=== PATIENT | female | born 1995 | race Caucasian/White ===

== ENCOUNTER → 2017-03-13 15:47 | Outpatient (CLI) | payer OTHER, SELFPAY ==
[2017-03-13 17:27] LABS: Color, Urine Yellow (Yellow); Glucose, Dipstick Normal (Normal); Ketone-Dipstick 50 mg/dl (Negative); Leukocyte Esterase-Dipstick 25 /ul (Negative); Nitrite-Dipstick Negative (Negative); Occult Blood-Urine 10 /ul (Negative); Protein-Dipstick 30 mg/dl (Negative); Specific Gravity, Urine 1.025 (1.002-1.030); Urine Clarity Cloudy (Clear); Urine Urobilinogen 4 mg/dl (Normal)
[2017-03-13 17:31] LABS: Urine Bilirubin Dipstick 1 mg/dL (Negative)
[2017-03-13 17:34] LABS: Absolute Lymphocyte Count 2.48 X10^3/ul (0.83-4.51); Absolute Neutrophil Count 7.8 X10^3/uL (2.0-7.7); Basophil# 0.02 X10^3/uL; Basophil% 0.2 % (0-1); Eosinophil# 0.09 X10^3/uL; Eosinophils% 0.8 % (0-5); Hematocrit 37.7 % (37-47); Hemoglobin 12.5 g/dl (12.0-15.0); Lymphocyte # 2.48 X10^3/ul (4.0); Lymphocyte % 22.5 % (19-41); Mean Corp Hgb Conc 33.2 g/gl (32-36); Mean Corpuscular Hgb 28.3 pg (27.0-32.0); Mean Corpuscular Volume 85.5 fL (81-99); Mean Platelet Vol. 10.3 fl (6.2-12.0); Monocyte# 0.56 X10^3/uL; Monocyte% 5.1 % (0-10); Neutrophil # 7.84 X10^3/uL (2.7-7.7); Neutrophil % 71.3 % (47-70); Platelet Count 307 K/mm3 (150-450); RBC Distribution Width CV 13.4 % (11.6-14.6); RBC Distribution Width SD 41.8 fl (35.1-43.9); Red Blood Count 4.41 M/mm3 (4.2-5.4)
[2017-03-13 17:37] LABS: POSITIVE COUNT NO; POSITIVE DIFFERENTIAL NO; POSITIVE MORPHOLOGY NO
[2017-03-13 18:00] LABS: Rubella IgG 195.9 IU/mL
[2017-03-15 16:07] LABS: HIV 1/0/2 SCREEN 4TH GEN Non Reactive (Non Reactive)
[2017-03-16 14:36] LABS: HEPATITIS B SURFACE AG Negative (Negative); Hep C Antibodies 0.1 s/co ratio (0.0-0.9)
[2017-03-20 04:38] LABS: Prenatal RPR NONREACTIVE (NONREACTIVE)
== END ==
PROVIDERS: Visit Provider Obstetrics & Gynecology
DX: Z34.81 Encounter for supervision of other normal pregnancy, first trimester (principal)
CPT/HCPCS: 36415; 81002; 84443; 85025; 86703; 86762; 86803; 87340

== ENCOUNTER → 2017-07-06 14:06 | Outpatient (CLI) | payer OTHER, SELFPAY ==
[2017-07-06 15:39] LABS: Hematocrit 36.9 % (37-47); Hemoglobin 12.4 g/dl (12.0-15.0); Mean Corp Hgb Conc 33.6 g/gl (32-36); Mean Corpuscular Hgb 29.2 pg (27.0-32.0); Mean Corpuscular Volume 86.8 fL (81-99); Mean Platelet Vol. 10.1 fl (6.2-12.0); Platelet Count 290 K/mm3 (150-450); RBC Distribution Width CV 12.9 % (11.6-14.6); Red Blood Count 4.25 M/mm3 (4.2-5.4); White Blood Count 11.5 K/mm3 (4.4-11.0)
[2017-07-06 15:41] LABS: Scan Indicated on CBC? Y/N NO
[2017-07-06 15:50] LABS: Glucose Challenge Gest 1H 50g 130 mg/dL (70-140)
== END ==
PROVIDERS: Visit Provider Obstetrics & Gynecology
DX: Z34.83 Encounter for supervision of other normal pregnancy, third trimester (principal)
CPT/HCPCS: 36415; 82950; 85027

== ENCOUNTER 2017-07-29 08:18 | Outpatient (CLI) | payer OTHER, SELFPAY ==
--- NOTE | 2017-07-29 08:18 | DT_ITS ---
This patient was seen during an EMR downtime July 27, 2017 - August 03, 2017. This patient may have a combination of paper and electronic documentation or all paper documentation. All documentation is viewable within the e-chart portion of [employer] for each patient visit.
== END 2017-07-29 09:30 | disposition home or self-care (01) ==
LOC: WP 07-30 12:21 → WPOUT 07-30 12:21
PROVIDERS: Family Provider Family Medicine; PCP Family Medicine; Visit Provider Obstetrics & Gynecology
DX: O26.853 Spotting complicating pregnancy, third trimester (principal); O41.03X0 Oligohydramnios, third trimester, not applicable or unspecified; O99.213 Obesity complicating pregnancy, third trimester; E66.01 Morbid (severe) obesity due to excess calories; Z3A.30 30 weeks gestation of pregnancy
CPT/HCPCS: 59025; 59050; 99218; G0378

== ENCOUNTER 2017-08-14 11:35 | Outpatient (CLI) | payer OTHER, SELFPAY ==
[2017-08-14 11:55] VITALS: BMI 23.6
[2017-08-14 12:59] LABS: Hematocrit 35.8 % (37-47); Hemoglobin 12.1 g/dl (12.0-15.0); Mean Corp Hgb Conc 33.8 g/gl (32-36); Mean Corpuscular Hgb 29.2 pg (27.0-32.0); Mean Corpuscular Volume 86.3 fL (81-99); Mean Platelet Vol. 9.4 fl (6.2-12.0); Platelet Count 267 K/mm3 (150-450); RBC Distribution Width CV 12.5 % (11.6-14.6); RBC Distribution Width SD 39.5 fl (35.1-43.9); Red Blood Count 4.15 M/mm3 (4.2-5.4); White Blood Count 10.6 K/mm3 (4.4-11.0)
[2017-08-14 13:01] LABS: Scan Indicated on CBC? Y/N NO
[2017-08-14 13:18] LABS: ALB/GLOB Ratio 0.5 RATIO (0.9-2.4); AST(SGOT) 44 U/L (15-37); Alanine Aminotransfer ALT/SGPT 81 U/L (13-56); Albumin, Serum 2.3 g/dL (3.2-5.0); Alkaline Phosphatase 125 U/L (45-117); Anion Gap 5 (5-15); BUN 8 mg/dL (7-18); BUN/Creat Ratio 14.5 RATIO (10-20); Chloride 109 mmol/L (98-107); Creatinine, Serum 0.55 mg/dL (0.55-1.02); EST Glomerular Filtration Rate 145 mL/min (>60); Est Glom Filt Rate - Afr Amer 175 mL/min (>60); Estimated Creatinine Clearance 143.15 ml/min; Globulin 4.5 g/dL (2.2-4.2); Glucose 90 mg/dL (74-106); Potassium 4.1 mmol/L (3.5-5.1); Protein, Total 6.8 g/dL (6.4-8.2); Sodium Level 138 mmol/L (136-145); Uric Acid 3.4 mg/dL (2.6-6.0)
[2017-08-14 14:20] LABS: Protein, Urine (Random) 11.6 mg/dL (<11.9); Protein:Creat Ratio 263 mg/g CRE (0-200)
[2017-08-15 14:33] LABS: 24HR. Urine Creatinine 1.81 g/24 HR (0.70-1.90)
--- NOTE | 2017-08-16 00:13 | OB.TRI.NOTE ---
- Problem List (1) 33 weeks gestation of Status: Acute (2) Elevated blood pressure affecting in third trimester, antepartum Status: Acute History of Present Illness Date of Service: 08/14/17 Was patient seen by the physician?: No Reason For Visit: NST Final MARCO: 09/30/17 Final MARCO Source: US <20 weeks Gestational age: 33 Weeks and 2 Days History of Present Illness: 21yo G1 @ 33 2/7wga for scheduled NST for oligohydramnios. Allergies naproxen [From Aleve] Allergy (Verified 08/14/17 11:59) Hives Physical Exam Vitals: BPs 126-139/77-91, P 76-93 NST - FHR Rate Baby A Baseline: 145 Variability:: Moderate Accelerations:: 15 x 15 Decelerations:: None NST Reactive:: Yes FHR Category:: Category I Uterine Activity:: 0/10 Impression/Plan 21yo G1 @ 33 2/7wga with oligohydramnios, elevated BPs without diagnosis of hypertension. -Pt asx for preeclampsia per RN -Preeclamptic labs sent and significant for slightly elevated AST/ALT -Will d/c home with 24h urine protein collection, pt to follow in office next week for BP check and follow up. Laboratory Tests 08/14/17 08/14/17 08/14/17 12:50 12:50 13:40 WBC 10.6 RBC 4.15 L Hgb 12.1 Hct 35.8 L MCV 86.3 MCH 29.2 MCHC 33.8 RDW 12.5 RDW Differential 39.5 Plt Count 267 MPV 9.4 Sodium 138 Potassium 4.1 Chloride 109 H Carbon Dioxide 24.0 Anion Gap 5 BUN 8 Creatinine 0.55 Estim Creat Clear Calc 143.15 Est GFR (MDRD) Af Amer 175 Est GFR (MDRD) Non-Af 145 BUN/Creatinine Ratio 14.5 Glucose 90 Uric Acid 3.4 Calcium 9.0 Total Bilirubin 0.20 AST 44 H ALT 81 H Alkaline Phosphatase 125 H Total Protein 6.8 Albumin 2.3 L Globulin 4.5 H Albumin/Globulin Ratio 0.5 L U Random Total Protein 11.6 Ur Collection Duration Urine Total Volume Urine Creatinine 44.10 Ur Creatinine 24 Hour Protein/Creatinin Ratio 263 H 08/14/17 14:15 WBC RBC Hgb Hct MCV MCH MCHC RDW RDW Differential Plt Count MPV Sodium Potassium Chloride Carbon Dioxide Anion Gap BUN Creatinine Estim Creat Clear Calc Est GFR (MDRD) Af Amer Est GFR (MDRD) Non-Af BUN/Creatinine Ratio Glucose Uric Acid Calcium Total Bilirubin AST ALT Alkaline Phosphatase Total Protein Albumin Globulin Albumin/Globulin Ratio U Random Total Protein Ur Collection Duration 24.0 Urine Total Volume 2.90 Urine Creatinine 62.80 Ur Creatinine 24 Hour 1.81 Protein/Creatinin Ratio
== END 2017-08-14 13:50 | disposition home or self-care (01) ==
LOC: WPOUT 11:40 → WP 11:40
PROVIDERS: Family Provider Family Medicine; PCP Family Medicine; Visit Provider Obstetrics & Gynecology
DX: O41.03X0 Oligohydramnios, third trimester, not applicable or unspecified (principal); Z3A.33 33 weeks gestation of pregnancy
CPT/HCPCS: 59025; 59050; 80053; 82570; 84156; 84550; 85027; 99218; G0378

== ENCOUNTER → 2017-08-15 14:09 | Outpatient (CLI) | payer OTHER, SELFPAY ==
[2017-08-17 12:13] LABS: 24 Hour Urine Protein 422.6 mg/24HR (<150 MG/24HR); 24HR. UA Prot. Total Volume 2875 mL; Urine Protein (24 Hour) 14.7 mg/dL (<11.9)
== END ==
PROVIDERS: Family Provider Family Medicine; PCP Family Medicine; Visit Provider Obstetrics & Gynecology
DX: O14.93 Unspecified pre-eclampsia, third trimester (principal); Z3A.33 33 weeks gestation of pregnancy; O41.03X0 Oligohydramnios, third trimester, not applicable or unspecified
CPT/HCPCS: 84156

== ENCOUNTER → 2017-08-17 11:31 | Outpatient (CLI) | payer OTHER, SELFPAY ==
[2017-08-17 13:55] LABS: AST(SGOT) 32 U/L (15-37); Alanine Aminotransfer ALT/SGPT 74 U/L (13-56); Albumin, Serum 2.6 g/dL (3.2-5.0); Alkaline Phosphatase 141 U/L (45-117); Bilirubin, Direct 0.07 mg/dL (0.00-0.30); Globulin 4.9 g/dL (2.2-4.2); Protein, Total 7.5 g/dL (6.4-8.2)
== END ==
PROVIDERS: Visit Provider Obstetrics & Gynecology
DX: Z34.83 Encounter for supervision of other normal pregnancy, third trimester (principal)
CPT/HCPCS: 36415; 80076

== ENCOUNTER 2017-09-02 11:20 | Outpatient (CLI) | payer OTHER, SELFPAY ==
[2017-09-02 11:48] VITALS: BMI 53.2
--- NOTE | 2017-09-05 06:34 | OB.TRI.NOTE ---
History of Present Illness Date of Service: 09/02/17 Was patient seen by the physician?: No Reason For Visit: NST Date of Service: 09/02/17 Final MARCO: 09/30/17 Final MARCO Source: US <20 weeks Gestational age: 36 Weeks and 0 Days History of Present Illness: 21 yo at 36 wk EGA sent in from ofc for NST due to PIH, mild preeclampsia. BMI more conducive to bed for NST. No PIH sx. has been on bedrest at home with Dx of mild preeclampsia by prior BPs and by 24 hr proteinuria Allergies naproxen [From Aleve] Allergy (Verified 09/02/17 11:50) Hives Physical Exam Vitals: BP 138/73 NST - FHR Rate Baby B Baseline: 130-140s with accels to 160s Variability:: Moderate Accelerations:: 15 x 15 Decelerations:: None, Early NST Reactive:: Yes, Appropriate for gestational age FHR Category:: Category I Uterine Activity:: No UCs Impression/Plan 36 wk mild preeclampsia BPs stable reactive NST Continue NST q wk. Ofc f/u as planned Induction at 37-38 wk EGA planned 2/2 PIH, mild preeclampsia
== END 2017-09-02 12:35 | disposition home or self-care (01) ==
LOC: WPOUT 11:22 → WP 11:23
PROVIDERS: Family Provider Family Medicine; PCP Family Medicine; Visit Provider Obstetrics & Gynecology
DX: O14.03 Mild to moderate pre-eclampsia, third trimester (principal); Z3A.36 36 weeks gestation of pregnancy
CPT/HCPCS: 59025

== ENCOUNTER → 2017-09-02 13:11 | Outpatient (CLI) | payer OTHER, SELFPAY ==
[2017-09-02 16:44] LABS: Group B Strep DNA By PCR Negative (Negative); Internal Control PASS; Probe Check PASS; Specimen Processing Control PASS
== END ==
PROVIDERS: Visit Provider Obstetrics & Gynecology
DX: Z36.85 Encounter for antenatal screening for Streptococcus B (principal)
CPT/HCPCS: 87081; 87653

== ENCOUNTER 2017-09-09 11:50 | Inpatient (IN) | payer OTHER, SELFPAY ==
[2017-09-09] MEDS: 0.9% Saline Lock 10 ML Syringe IV (12:44)
[2017-09-09] MEDS: miSOPROStol 25 MCG TABLET PO ×3 (12:44→21:27)
[2017-09-09 12:53] VITALS: BMI 53.1
[2017-09-09 12:57] LABS: Hematocrit 36.8 % (37-47); Hemoglobin 12.6 g/dl (12.0-15.0); Mean Corp Hgb Conc 34.2 g/gl (32-36); Mean Corpuscular Hgb 29.2 pg (27.0-32.0); Mean Corpuscular Volume 85.4 fL (81-99); Mean Platelet Vol. 9.8 fl (6.2-12.0); Platelet Count 289 K/mm3 (150-450); RBC Distribution Width CV 12.5 % (11.6-14.6); RBC Distribution Width SD 38.9 fl (35.1-43.9); Red Blood Count 4.31 M/mm3 (4.2-5.4); White Blood Count 10.7 K/mm3 (4.4-11.0)
[2017-09-09 13:00] LABS: Scan Indicated on CBC? Y/N NO
[2017-09-09 13:05] LABS: AST(SGOT) 42 U/L (15-37); Alanine Aminotransfer ALT/SGPT 74 U/L (13-56); Creatinine, Serum 0.64 mg/dL (0.55-1.02); EST Glomerular Filtration Rate 122 mL/min (>60); Est Glom Filt Rate - Afr Amer 148 mL/min (>60); Estimated Creatinine Clearance 123.02 ml/min; Uric Acid 4.4 mg/dL (2.6-6.0)
[2017-09-09 13:08] LABS: International Normalized Ratio 0.9; Prothrombin Time (Protime)PT. 12.5 SECONDS (11.7-14.9)
[2017-09-09 13:09] LABS: Partial Thromboplast Time 27.8 Seconds (24.1-36.2)
[2017-09-09 15:13] LABS: Protein, Urine (Random) 38.4 mg/dL (<11.9); Protein:Creat Ratio 239 mg/g CRE (0-200)
[2017-09-10] MEDS: 0.9% Saline Lock 10 ML Syringe IV ×2 (01:16→07:43)
[2017-09-10] MEDS: miSOPROStol 25 MCG TABLET PO ×2 (01:16→05:16)
--- NOTE | 2017-09-10 07:22 | PN.OBGYN_ITS ---
Subjective: Comfortable. No contractions overnight. Good movement. Objective: Afeb VSS BP normal range - Physical Exam General: Alert, Oriented x3, Cooperative, No apparent distress Lungs: Clear to auscultation, Normal air movement Cardiovascular: Regular rate, Regular Rhythm Abdomen: Soft, Non Tender, Non-Distended, Gravid Extremities: No edema Skin: No rashes Neurological: Neuro grossly intact Psych/Mental Status: Normal Affect Comment: CE 2/50/-3 Weight: 319 lb 10.724 oz Body Mass Index (BMI) 53.1 Intake and Output for Last 24 Hours 09/08/17 09/09/17 09/10/17 23:59 23:59 23:59 Intake Total 400 / 400 Output Total 250 / 250 Balance 150 / 150 Laboratory Tests Past 24 Hrs 09/09/17 09/09/17 09/09/17 12:35 12:35 12:35 WBC 10.7 RBC 4.31 Hgb 12.6 Hct 36.8 L MCV 85.4 MCH 29.2 MCHC 34.2 RDW 12.5 RDW Differential 38.9 Plt Count 289 MPV 9.8 PT 12.5 INR 0.9 APTT 27.8 Creatinine Estim Creat Clear Calc Est GFR (MDRD) Af Amer Est GFR (MDRD) Non-Af Uric Acid AST ALT U Random Total Protein Urine Creatinine Protein/Creatinin Ratio Blood Type A POSITIVE Antibody Screen NEGATIVE 09/09/17 09/09/17 12:35 14:25 WBC RBC Hgb Hct MCV MCH MCHC RDW RDW Differential Plt Count MPV PT INR APTT Creatinine 0.64 Estim Creat Clear Calc 123.02 Est GFR (MDRD) Af Amer 148 Est GFR (MDRD) Non-Af 122 Uric Acid 4.4 AST 42 H ALT 74 H U Random Total Protein 38.4 H Urine Creatinine 161.00 Protein/Creatinin Ratio 239 H Blood Type Antibody Screen Medical Necessity - Tobacco Use Smoking Status: Never smoker Assessment/Plan All Active Problems 33 weeks gestation of (Acute) Elevated blood pressure affecting in third trimester, antepartum ( Acute) Admitted at 37 weeks for induction of labor with preeclampsia with elevated BPs and proteinuria. Labs sent at admission normal except elevated AST/ALT. No physical symptoms related to preeclampsia. FHR tracing appropriate. AROM was performed with clear fluid noted. DEE placed. Will start pitocin induction at 0900. S/P 5 doses of vaginal cytotec.
[2017-09-10] MEDS: Lactated Ringers 1,000 ML 50 ML IV ×4 (07:43→23:30)
[2017-09-10] MEDS: Oxytocin 30 units/NS 500 ml 30 UNITS/500 ML IV.SOLN IV (09:21)
[2017-09-10] MEDS: Nalbuphine 10 MG/ML Ampul IV (12:25)
[2017-09-10] MEDS: fentaNYL-bupivacaine (epidural) 100 ML BAG EPIDURAL ×3 (14:28→23:29)
[2017-09-10] MEDS: Ondansetron 4 MG/2 ML Vial IV (17:05)
--- NOTE | 2017-09-10 17:56 | PCM.PN.BLA ---
Progress Note Reports nausea improved after Zofran. Denies headache, vision changes. She otherwise is comfortable. AVSS GEN - NAD, AAO x 3 FHR - 150, minimal variability, no accelerations or decelerations - previously with late decelerations TOCO 4/10 min with coupleting of contractions SVE 5/80/-2 per RN at 1639h A/P: 21yo G1 @ 37 1/7wga with preeclampsia without severe features, Cat II FHR -IV fluid bolus given. Variability decreasing - will place O2 supplementation; maternal repositioning. Discussed with patient concerns and will continue observation without pitocin at this time. -No si/sx worsening preeclampsia -Monitor closely
--- NOTE | 2017-09-10 21:40 | PCM.PN.BLA ---
Progress Note LABOR PROGRESS NOTE Reports discomfort in lower abdomen. Denies pressure urge to push or have a bowel movement. AVSS GEN - NAD, AAO x 3 FHR 150, moderate variability, + accelerations, no decelerations TOCO 4-5/10 min, MVU >200 SVE deferred A/P: 21yo G1 @ 37 1/7wga IOL with preeclampsia without severe features, Cat I FHR -Continue pitocin as tolerated by mother and fetus -No si/sx worsening preeclampsia -Will defer exam for additional 1-2 hours or until feels urge to push.
--- NOTE | 2017-09-11 01:15 | PCM.PN.BLA ---
Progress Note LABOR PROGRESS NOTE c/o rectal pressure and discomfort. AVSS GEN - NAD, AAO x 3 FHR 160, moderate variability, + variable decelerations TOCO 3-4/10 min SVE FD/0 station A/P: 21yo G1 @ 37 2/7wga, preeclampsia without severe features -Amnioinfusion given, pitocin discontinued without significant improvement of variable decelerations. Pushing initiated. Given recurrent variable decelerations plan move to OR for double set up to continue pushing. Plan for vacuum assisted vaginal delivery when +2 station. R/B/I vacuum reviewed. Discussed section as alternative and patient understands may need to proceed with section if status declines. R/B/I section reviewed. Patient and spouse given opportunity to ask questions and questions answered to their satisfaction. Will continue pushing in OR. -Monitor closely
[2017-09-11] MEDS: Oxytocin 30 units/NS 500 ml 30 UNITS/500 ML IV.SOLN 334 UNITS IV (01:53)
--- NOTE | 2017-09-11 02:14 | PCM.OB.VAG ---
- Problem List (1) 37 weeks gestation of Status: Acute (2) Pre-eclampsia in third trimester Status: Acute (3) Vacuum extraction, delivered, current hospitalization Status: Acute Vaginal Delivery Maternal Presentation: Medically Indicated Induction Method of Induction: Pitocin, Amniotomy, Cytotec Medical Reason for Induction: - - Preeclampsia without severe features Amniotic Membrane Rupture Type: Artificial Rupture of Membrane time: 09/10/17 0710h Amniotic Fluid Description: Clear Final MARCO: 09/30/17 Final MARCO Source: US <20 weeks Gestational age: 37 Weeks and 2 Days doctor who attended delivery (if requested by OB): Nini Collado Date of Procedure: 09/11/17 Pre-Operative Diagnosis: 37 2/7wga, preeclampsia without severe features, Cat II FHR Post-Operative Diagnosis: 37 2/7wga, preeclampsia without severe features, Cat II FHR Surgery/ Procedure Performed: Spontaneous Vaginal Delivery Anesthesiologist: Corin Martin Type of Anesthesia: Epidural Description of Procedure: Patient was FD and +3 station and ROP. FHR remained Cat II with recurrent variable decelerations. She was given Oxygen supplementation and I advised proceeding with vacuum delivery. Reviewed with patient and maternal risks, benefits and indications of vacuum assistance. She agreed to proceed. The Kiwi cap was placed at the flexion point and suction applied to 500mmHg. The patient pushed with good maternal effort. Two pulls were performed, the second was accompanied by some loss of suction without any popoff. Thus the suction was released and the vacuum replaced. The vacuum was replaced at the flexion point and the patient continued pushing with good descent. The head delivered with restitution and the vacuum was removed. A nuchal cord x 1 was reduced. The shoulders delivered with ease. The was placed on the maternal abdomen, the cord was immediately doubly clamped and cut and the infant was passes to the awaiting Pediatric Hospitalist and nursery personnel. The placenta delivered spontaneously and appeared intact on inspection. An intrauterine exam was performed and IV pitocin started. A first degree vaginal laceration was repaired with 3-0 Vicryl Rapide. A right labial laceration was repaired with 3-0 Vicryl Rapide. Sponge counts were correct x 2. 2525g Apgars 4, 6, 7, 7 Presentation: Vertex Placental Delivery Description: Spontaneous Placenta Disposition: Sent to Pathology Cord Vessel Description: 3 Vessels Nuchal Cord Compression: With compression Cord Gases drawn per routine: ABG, VBG Cord Entanglement: Around neck x 1, tight Drain: Davis to straight drain Estimated Blood Loss: 400 ml A gender: Male (1 minute): 4 (5 minute): 6 - Infant admitted to [facility] Episiotomy Description: None Laceration: Midline, Vaginal Extension/lac, 1st degree Medications given after delivery: IV Pitocin Complications: None
[2017-09-11] MEDS: Oxytocin 30 units/NS 500 ml 30 UNITS/500 ML IV.SOLN 167 UNITS IV (02:30)
--- NOTE | 2017-09-11 02:35 | OP.PCM_ITS ---
- Problem List (1) 37 weeks gestation of Status: Acute (2) Pre-eclampsia in third trimester Status: Acute (3) Vacuum extraction, delivered, current hospitalization Status: Acute Vaginal Delivery Maternal Presentation: Medically Indicated Induction Method of Induction: Pitocin, Amniotomy, Cytotec Medical Reason for Induction: - - Preeclampsia without severe features Amniotic Membrane Rupture Type: Artificial Rupture of Membrane time: 09/10/17 0710h Amniotic Fluid Description: Clear Final MARCO: 09/30/17 Final MARCO Source: US <20 weeks Gestational age: 37 Weeks and 2 Days doctor who attended delivery (if requested by OB): Nini Collado Date of Procedure: 09/11/17 Pre-Operative Diagnosis: 37 2/7wga, preeclampsia without severe features, Cat II FHR Post-Operative Diagnosis: 37 2/7wga, preeclampsia without severe features, Cat II FHR Surgery/ Procedure Performed: Spontaneous Vaginal Delivery Anesthesiologist: Corin Martin Type of Anesthesia: Epidural Description of Procedure: Patient was FD and +3 station and ROP. FHR remained Cat II with recurrent variable decelerations. She was given Oxygen supplementation and I advised proceeding with vacuum delivery. Reviewed with patient and maternal risks , benefits and indications of vacuum assistance. She agreed to proceed. The Kiwi cap was placed at the flexion point and suction applied to 500mmHg. The patient pushed with good maternal effort. Two pulls were performed, the second was accompanied by some loss of suction without any popoff. Thus the suction was released and the vacuum replaced. The vacuum was replaced at the flexion point and the patient continued pushing with good descent. The head delivered with restitution and the vacuum was removed. A nuchal cord x 1 was reduced. The shoulders delivered with ease. The was placed on the maternal abdomen, the cord was immediately doubly clamped and cut and the infant was passes to the awaiting Pediatric Hospitalist and nursery personnel. The placenta delivered spontaneously and appeared intact on inspection. An intrauterine exam was performed and IV pitocin started. A first degree vaginal laceration was repaired with 3-0 Vicryl Rapide. A right labial laceration was repaired with 3-0 Vicryl Rapide. Sponge counts were correct x 2. Infant 2525g Apgars 4, 6, 7, 7 Presentation: Vertex Placental Delivery Description: Spontaneous Placenta Disposition: Sent to Pathology Cord Vessel Description: 3 Vessels Nuchal Cord Compression: With compression Cord Gases drawn per routine: ABG, VBG Cord Entanglement: Around neck x 1, tight Drain: Davis to straight drain Estimated Blood Loss: 400 ml Infant A gender: Male (1 minute): 4 (5 minute): 6 - Infant admitted to [facility] Episiotomy Description: None Laceration: Midline, Vaginal Extension/lac, 1st degree Medications given after delivery: IV Pitocin Complications: None
--- NOTE | 2017-09-11 03:31 | DCINST_ITS ---
Discharge Diet: No Restrictions Discharge Activity: Return to Normal Activity, May not drive while taking narcotic pain medications., May Shower May resume sexual activity in: 6 weeks Call your doctor if you observe: Fever of 101 or Higher, Inability to urinate, Inability to have a bowel movement, Using more than one pad per hour, Shortness of breath, Chest pain, Calf discomfort, Uncontrolled pain, - - Severe headache not relieved by Tylenol, severe abdominal pain , vision changes Additional Instructions: If you experience any of the following, contact your healthcare provider. * Bleeding that soaks a pad every hour for 2 hours * Fever 100.4 or higher * Unrelieved incision or abdominal pain * Swelling, redness, discharge or bleeding from your incision or episiotomy site * Your incision begins to separate * Problems urinating (including inability to urinate or burning while urinating) . * Visual changes * Severe headache * Flu-like symptoms * Pain or redness in one of both of your breasts * Pain, warmth, tenderness or swelling in your legs, especially the calf area * Frequent nausea and vomiting * Symptoms of depression or anxiety If you experience any of the following, call 911 or go to the nearest Emergency Room. * Chest pain * Problems breathing * Seizure activity * Partial or complete paralysis of a body part, slurred speech, weakness or drooping of the face, or a sudden inability to walk or hold your balance Allergies/Adverse Reactions: Allergies naproxen [From Aleve] Allergy (Verified 09/09/17 12:50) Hives Medications to take at Discharge Loratadine [Claritin] 10 mg PO PRN PRN 08/14/17 Vits [Prenatabs FA ] 1 tablet PO DAILY 08/14/17 Acetaminophen [Tylenol] 325 - 650 mg PO PRN PRN 09/09/17 Calcium Carbonate [Tums] 200 mg PO PRN PRN 09/09/17 Docusate Sodium [Colace] 100 mg PO BID PRN PRN #60 cap 09/11/17 Ibuprofen 600 mg PO TID PRN #30 tab 09/11/17 The following prescriptions were given: Docusate Sodium [Colace] 100 mg PO BID PRN PRN #60 cap PRN Reason: Constipation Ibuprofen 600 mg PO TID PRN #30 tab PRN Reason: Pain Orders to be completed after discharge: Electric breast pump Location: None Selected Please Follow Up With: Jenn Cardenas MD - Blood pressure check When: 7-10 days Primary Care Physician: Nagi Tamez DO [Primary Care Provider] - Test Results: Test results from this visit will be discussed in further detail at your follow- up appointment, if applicable.
[2017-09-11 06:00] VITALS: BP 128/82; PULSE 96; RESP 18; TEMP 37.2
[2017-09-11 10:30] VITALS: BP 139/78; PULSE 90; RESP 20; TEMP 36.4
[2017-09-11] MEDS: Ibuprofen 600 MG Tablet PO ×2 (10:30→16:31)
[2017-09-11] MEDS: Prenatal Vits Tablet 1 TABLET PO (10:30)
[2017-09-11 12:45] VITALS: BP 129/66; PULSE 93; TEMP 36.4; O2SAT 97
--- NOTE | 2017-09-11 13:15 | NURSING ---
1300 While rounding, a double pump was given to Mom and she has started pumping to help with accelerating her milk supply. We discussed the use of the platnium pump and prior breast massage and breast expression as able. Encouraged Mom to call if any further questions or concerns with pumpings. Yue CHERY
[2017-09-11 16:40] VITALS: BP 136/68; PULSE 104; TEMP 36.6; O2SAT 96
[2017-09-11 20:55] VITALS: BP 130/63; PULSE 103; RESP 20; TEMP 36.9; O2SAT 96
--- NOTE | 2017-09-11 21:16 | NURSING ---
2054-states she is having some burning/stinging when she voids to stitches area-enc to spray perineum with urban bottle when she voids.
[2017-09-12] MEDS: Ibuprofen 600 MG Tablet PO ×4 (00:41→22:36)
[2017-09-12 00:43] VITALS: BP 113/75; PULSE 103; RESP 18; TEMP 37.2; O2SAT 97
[2017-09-12 05:55] VITALS: BP 107/80; PULSE 84; RESP 20; TEMP 36.3
[2017-09-12 06:10] LABS: Hematocrit 30.5 % (37-47); Hemoglobin 10.4 g/dl (12.0-15.0); Mean Corp Hgb Conc 34.1 g/gl (32-36); Mean Corpuscular Hgb 30.1 pg (27.0-32.0); Mean Corpuscular Volume 88.2 fL (81-99); Mean Platelet Vol. 9.9 fl (6.2-12.0); Platelet Count 245 K/mm3 (150-450); RBC Distribution Width CV 12.9 % (11.6-14.6); RBC Distribution Width SD 39.8 fl (35.1-43.9); Red Blood Count 3.46 M/mm3 (4.2-5.4); White Blood Count 11.2 K/mm3 (4.4-11.0)
[2017-09-12 06:14] LABS: Scan Indicated on CBC? Y/N NO
[2017-09-12 07:25] VITALS: BP 150/88; PULSE 87; RESP 16; TEMP 36.4
--- NOTE | 2017-09-12 09:41 | PN.OBGYN_ITS ---
Patient Problems: Active and Suspected Problems 37 weeks gestation of (Acute) Pre-eclampsia in third trimester (Acute) Vacuum extraction, delivered, current hospitalization (Acute) Subjective: day #1 Patient without complaints. Pumping and supplementing. Baby will likely need to stay past tomorrow as an IV is still in place. Minimal vaginal bleeding. - Physical Exam Vital Signs Temp Pulse Resp BP Pulse Ox 97.6 F L 87 16 150/88 H 97 09/12/17 07:25 09/12/17 07:25 09/12/17 07:25 09/12/17 07:25 09/12/17 00:43 Oxygen Delivery Method Room Air Weight: 319 lb 10.724 oz Body Mass Index (BMI) 53.1 Intake and Output for Last 24 Hours 09/10/17 09/11/17 09/12/17 23:59 23:59 23:59 Intake Total 1983 / 1983 500 / 500 Output Total 400 / 400 1600 / 1600 Balance 1584 / 1584 -1100 / -1100 Laboratory Tests Past 24 Hrs 09/12/17 05:55 WBC 11.2 H RBC 3.46 L Hgb 10.4 L Hct 30.5 L MCV 88.2 MCH 30.1 MCHC 34.1 RDW 12.9 RDW Differential 39.8 Plt Count 245 MPV 9.9 Medical Necessity - Tobacco Use Smoking Status: Never smoker Assessment/Plan All Active Problems 33 weeks gestation of (Acute) Elevated blood pressure affecting in third trimester, antepartum ( Acute) 37 weeks gestation of (Acute) Pre-eclampsia in third trimester (Acute) Vacuum extraction, delivered, current hospitalization (Acute) Doing well day #1. Continuing present care.
[2017-09-12 10:00] VITALS: BP 129/73; PULSE 94; RESP 18; TEMP 36.1
[2017-09-12 15:00] VITALS: BP 134/67; PULSE 86; RESP 18; TEMP 36.4
[2017-09-12] MEDS: Prenatal Vits Tablet 1 TABLET PO (15:04)
[2017-09-12 19:40] VITALS: BP 129/68; PULSE 94; RESP 16; TEMP 37.7
[2017-09-13 02:45] VITALS: BP 105/58; RESP 16; TEMP 37.1
[2017-09-13 07:56] VITALS: BP 130/80; PULSE 92; RESP 18; TEMP 35.9; O2SAT 98
--- NOTE | 2017-09-13 07:57 | PN.OBGYN_ITS ---
Patient Problems: Active and Suspected Problems 37 weeks gestation of (Acute) Pre-eclampsia in third trimester (Acute) Vacuum extraction, delivered, current hospitalization (Acute) Subjective: Patient without complaints. Pumping going well. Baby needs to a for 2 more days. - Physical Exam Vital Signs Temp Pulse Resp BP Pulse Ox 98.8 F 94 16 105/58 L 97 09/13/17 02:45 09/12/17 19:40 09/13/17 02:45 09/13/17 02:45 09/12/17 00:43 Oxygen Delivery Method Room Air Weight: 319 lb 10.724 oz Body Mass Index (BMI) 53.1 Intake and Output for Last 24 Hours 09/11/17 09/12/17 09/13/17 23:59 23:59 23:59 Intake Total 500 / 500 Output Total 1600 / 1600 Balance -1100 / -1100 Medical Necessity - Tobacco Use Smoking Status: Never smoker Assessment/Plan All Active Problems 33 weeks gestation of (Acute) Elevated blood pressure affecting in third trimester, antepartum ( Acute) 37 weeks gestation of (Acute) Pre-eclampsia in third trimester (Acute) Vacuum extraction, delivered, current hospitalization (Acute) Doing well. Will release to hotel status.
[2017-09-13] MEDS: Ibuprofen 600 MG Tablet PO (09:44)
[2017-09-13] MEDS: Prenatal Vits Tablet 1 TABLET PO (09:45)
[2017-09-13 15:35] VITALS: BP 137/88; PULSE 100; RESP 18; TEMP 36.8; O2SAT 97
--- NOTE | 2017-09-13 15:40 | NURSING ---
Patient to be transferred to hotel status.
== END 2017-09-13 16:00 | disposition home or self-care (01) | DRG 775 ==
PROVIDERS: Obstetrics & Gynecology; Admitting Provider Obstetrics & Gynecology; Family Provider Family Medicine; PCP Family Medicine; Visit Provider Obstetrics & Gynecology
DX: O76 Abnormality in fetal heart rate and rhythm complicating labor and delivery (principal); Z68.43 Body mass index [BMI] 50.0-59.9, adult; Z37.0 Single live birth; O14.94 Unspecified pre-eclampsia, complicating childbirth; O69.1XX0 Labor and delivery complicated by cord around neck, with compression, not applicable or unspecified; Z3A.37 37 weeks gestation of pregnancy; O70.0 First degree perineal laceration during delivery; O99.214 Obesity complicating childbirth; E66.01 Morbid (severe) obesity due to excess calories
CPT/HCPCS: 59025; 59050; 82565; 82570; 84156; 84450; 84460; 84550; 85027; 85610; 85730; 86850; 86900; 99218; J7030; J7120; A4216; G0378; J2405

== ENCOUNTER → 2017-12-22 10:46 | Outpatient (CLI) | payer OTHER, SELFPAY ==
[2017-12-22 11:35] LABS: Microalbumin,Random Urine 38.2 mg/L (NO RANGE EST.); Microalbumin:Creatinine Ratio 23.6 mg/g CRE (<30 mg/g CRE)
[2017-12-22 14:09] LABS: ALB/GLOB Ratio 0.8 RATIO (0.9-2.4); AST(SGOT) 76 U/L (15-37); Alanine Aminotransfer ALT/SGPT 135 U/L (13-56); Albumin, Serum 3.5 g/dL (3.2-5.0); Alkaline Phosphatase 151 U/L (45-117); Anion Gap 7 (5-15); BUN 13 mg/dL (7-18); BUN/Creat Ratio 16.1 RATIO (10-20); Calcium,Total 8.9 mg/dL (8.5-10.1); Chloride 108 mmol/L (98-107); Creatinine, Serum 0.81 mg/dL (0.55-1.02); EST Glomerular Filtration Rate 93 mL/min (>60); Est Glom Filt Rate - Afr Amer 112 mL/min (>60); Globulin 4.6 g/dL (2.2-4.2); Glucose 88 mg/dL (74-106); Protein, Total 8.1 g/dL (6.4-8.2); Sodium Level 139 mmol/L (136-145)
== END ==
PROVIDERS: Visit Provider Obstetrics & Gynecology
DX: I10 Essential (primary) hypertension (principal)
CPT/HCPCS: 36415; 80053; 82043; 82570

== ENCOUNTER → 2017-12-30 09:54 | Outpatient (CLI) | payer OTHER, SELFPAY ==
--- NOTE | 2017-12-30 09:58 | US_ITS ---
STUDY: ABDOMINAL ULTRASOUND - RIGHT UPPER QUADRANT REASON FOR VISIT: Female, 22 years old. Elevated liver enzymes TECHNIQUE: Ultrasound evaluation of the right upper quadrant was performed with real-time and static mukherjee-scale imaging. TECHNICAL QUALITY: Adequate. COMPARISON: None. FINDINGS: Liver: The liver measures 18 cm. There is normal echogenicity of the liver. The bile ducts are within normal limits. There is hepatic color flow. The direction of portal flow is hepatopetal. There is no demonstrated mass lesion. Gallbladder: Normal distended gallbladder. The gallbladder wall measures 2.3 mm. There is a negative sonographic Lacey's sign. There is no pericholecystic fluid. There are no gallstones. Common Bile Duct (C.B.D.): The common bile duct measures 5.3 mm. Pancreas: Normal size of the head, body and tail of the pancreas. There is normal echogenicity of the pancreas. There is no demonstrated pancreatic mass or cyst. Right Kidney: Normal size of the right kidney. The right kidney measures 12.6 x 6.9 x 6.5 cm. Normal renal cortex. The right cortex measures 1.8 cm. There is no demonstrated renal mass or cyst. There is no right hydronephrosis. US/Liver IMPRESSION: Hepatomegaly. Electronically Signed: Daniel Rivera DO at 23:53 EST Tel [phone], Service support ,
[2017-12-30 12:24] LABS: Cholesterol 209 mg/dL (200); High Density Lipoprotein 41 mg/dL; Triglycerides 103 mg/dL; Very Low Density Lipoprotein 21 mg/dL (5-40)
== END ==
PROVIDERS: Family Provider Internal Medicine; PCP Internal Medicine; Referring Provider Obstetrics & Gynecology; Visit Provider Obstetrics & Gynecology
DX: I10 Essential (primary) hypertension (principal); R94.5 Abnormal results of liver function studies
CPT/HCPCS: 36415; 76705; 80061

== ENCOUNTER → 2018-01-12 11:09 | Outpatient (CLI) | payer OTHER, SELFPAY ==
[2018-01-12 13:10] LABS: AST(SGOT) 37 U/L (15-37); Alanine Aminotransfer ALT/SGPT 78 U/L (13-56); Albumin, Serum 3.4 g/dL (3.2-5.0); Alkaline Phosphatase 120 U/L (45-117); Anion Gap 11 (5-15); BUN 13 mg/dL (7-18); BUN/Creat Ratio 17.2 RATIO (10-20); Calcium,Total 8.9 mg/dL (8.5-10.1); Chloride 106 mmol/L (98-107); Creatinine, Serum 0.76 mg/dL (0.55-1.02); EST Glomerular Filtration Rate 100 mL/min (>60); Est Glom Filt Rate - Afr Amer 121 mL/min (>60); Globulin 4.2 g/dL (2.2-4.2); Glucose 76 mg/dL (74-106); Potassium 3.8 mmol/L (3.5-5.1); Protein, Total 7.6 g/dL (6.4-8.2); Sodium Level 141 mmol/L (136-145)
== END ==
PROVIDERS: Family Provider Internal Medicine; PCP Internal Medicine; Referring Provider Obstetrics & Gynecology; Visit Provider Obstetrics & Gynecology
DX: O10.03 Pre-existing essential hypertension complicating the puerperium (principal)
CPT/HCPCS: 36415; 80048; 80076

== ENCOUNTER → 2018-03-02 15:15 | Outpatient (CLI) | payer OTHER, SELFPAY ==
[2018-02-02 10:40] VITALS: BMI 52.2
[2018-03-02 16:34] LABS: Anion Gap 9 (5-15); BUN 14 mg/dL (7-18); BUN/Creat Ratio 15.5 RATIO (10-20); Calcium,Total 9.1 mg/dL (8.5-10.1); Chloride 103 mmol/L (98-107); EST Glomerular Filtration Rate 81 mL/min (>60); Est Glom Filt Rate - Afr Amer 98 mL/min (>60); Glucose 84 mg/dL (74-106); Sodium Level 141 mmol/L (136-145)
== END ==
PROVIDERS: Family Provider Internal Medicine; PCP Internal Medicine; Referring Provider Internal Medicine; Visit Provider Internal Medicine
DX: I10 Essential (primary) hypertension (principal)
CPT/HCPCS: 36415; 80048

== ENCOUNTER → 2018-04-06 13:38 | Outpatient (CLI) | payer OTHER, SELFPAY ==
[2018-03-11 13:40] VITALS: BMI 52.2
[2018-04-06 15:55] LABS: Potassium 3.2 mmol/L (3.5-5.1)
== END ==
PROVIDERS: Family Provider Internal Medicine; PCP Internal Medicine; Referring Provider Internal Medicine; Visit Provider Internal Medicine
DX: E87.6 Hypokalemia (principal)
CPT/HCPCS: 36415; 84132

== ENCOUNTER → 2018-05-06 11:14 | Outpatient (CLI) | payer OTHER, SELFPAY ==
[2018-03-11 13:40] VITALS: BMI 52.2
[2018-05-06 12:17] LABS: Anion Gap 8 (5-15); BUN 12 mg/dL (7-18); BUN/Creat Ratio 15.8 RATIO (10-20); Chloride 106 mmol/L (98-107); Creatinine, Serum 0.76 mg/dL (0.55-1.02); EST Glomerular Filtration Rate 99 mL/min (>60); Est Glom Filt Rate - Afr Amer 120 mL/min (>60); Glucose 84 mg/dL (74-106); Sodium Level 140 mmol/L (136-145)
== END ==
PROVIDERS: Family Provider Internal Medicine; PCP Internal Medicine; Referring Provider Internal Medicine; Visit Provider Internal Medicine
DX: E87.6 Hypokalemia (principal)
CPT/HCPCS: 36415; 80048

== ENCOUNTER → 2018-07-27 07:44 | Outpatient (CLI) | payer OTHER, SELFPAY ==
[2018-03-11 13:40] VITALS: BMI 52.2
[2018-06-08 14:18] VITALS: BMI 52.2
--- NOTE | 2018-07-27 07:48 | US_ITS ---
STUDY: ABDOMINAL ULTRASOUND - RIGHT UPPER QUADRANT REASON FOR VISIT: Female, 22 years old. Elevated liver function tests. TECHNIQUE: Ultrasound evaluation of the right upper quadrant was performed with real-time and static mukherjee-scale imaging. TECHNICAL QUALITY: Limited. Examination limited due to a combination of factors including obesity and bowel gas. COMPARISON: 12/30/2017 FINDINGS: Liver: The liver measures 16.3 cm. There is increased echogenicity consistent with fatty infiltration. The bile ducts are within normal limits. There is hepatic color flow. The direction of portal flow is hepatopetal. There is no demonstrated mass lesion. Gallbladder: Normal distended gallbladder. The gallbladder wall measures 2 mm. There is a negative sonographic Lacey's sign. There is no pericholecystic fluid. There are no gallstones. There is a small 4 mm polyp of the posterior wall. Common Bile Duct (C.B.D.): The common bile duct measures 3.7 mm. Pancreas: Normal size of the head, body and tail of the pancreas. There is normal echogenicity of the pancreas. There is no demonstrated pancreatic mass or cyst. Right Kidney: Normal size of the right kidney. The right kidney measures 13.7 cm. Normal renal cortex. The right cortex measures 2.4 cm. There is no demonstrated renal mass or cyst. There is no right hydronephrosis. US/Liver IMPRESSION: Small gallbladder polyp. Otherwise negative. Electronically Signed: Hieu Cunningham MD at 23:58 EDT , Service support ,
[2018-07-27 09:31] LABS: ALB/GLOB Ratio 0.8 RATIO (0.9-2.4); AST(SGOT) 18 U/L (15-37); Alanine Aminotransfer ALT/SGPT 22 U/L (13-56); Albumin, Serum 3.3 g/dL (3.2-5.0); Alkaline Phosphatase 108 U/L (45-117); Anion Gap 6 (5-15); BUN 16 mg/dL (7-18); BUN/Creat Ratio 21.6 RATIO (10-20); Calcium,Total 8.9 mg/dL (8.5-10.1); Chloride 105 mmol/L (98-107); Creatinine, Serum 0.74 mg/dL (0.55-1.02); EST Glomerular Filtration Rate 102 mL/min (>60); Est Glom Filt Rate - Afr Amer 123 mL/min (>60); Globulin 4.3 g/dL (2.2-4.2); Glucose 86 mg/dL (74-106); Potassium 3.6 mmol/L (3.5-5.1); Protein, Total 7.6 g/dL (6.4-8.2); Sodium Level 138 mmol/L (136-145)
== END ==
PROVIDERS: Family Provider Internal Medicine; PCP Internal Medicine; Referring Provider Internal Medicine; Visit Provider Internal Medicine
DX: R16.0 Hepatomegaly, not elsewhere classified (principal); R74.8 Abnormal levels of other serum enzymes
CPT/HCPCS: 36415; 76705; 80053

== ENCOUNTER → 2018-11-04 11:22 | Outpatient (CLI) | payer OTHER, SELFPAY ==
[2018-10-19 11:14] VITALS: BMI 51.5
--- NOTE | 2018-11-04 11:25 | EKG12_ITS ---
Test Reason : TACHYCARDIA Blood Pressure : / mmHG Vent. Rate : 075 BPM Atrial Rate : 075 BPM P-R Int : 132 ms QRS Dur : 072 ms QT Int : 400 ms P-R-T Axes : 062 059 038 degrees QTc Int : 446 ms Normal sinus rhythm with sinus arrhythmia Normal ECG Confirmed by BETINA VARMA, ROMULO ([id number]), order editor GIDEON GORMAN ([id number]) on 11/05/2018 11:47:54 AM Referred By: Olga Car Confirmed By:TOM MOFFETT MD
[2018-11-04 13:11] LABS: T4 Free Direct 1.05 ng/dL (0.76-1.46); Thyroid Stim Hormone (TSH) 2.11 uIU/mL (0.358-3.74)
== END ==
PROVIDERS: Family Provider Internal Medicine; PCP Internal Medicine; Referring Provider Internal Medicine; Visit Provider Internal Medicine
DX: R00.0 Tachycardia, unspecified (principal)
CPT/HCPCS: 36415; 84439; 84443; 93005

== ENCOUNTER → 2018-11-23 11:43 | Outpatient (CLI) | payer OTHER, SELFPAY ==
[2018-11-23 11:08] VITALS: BMI 51.5
[2018-11-23 13:09] LABS: Amphetamine Urine VISTA NEGATIVE (<1000 ng/mL); Barbiturate Urine VISTA NEGATIVE (< 200 ng/mL); Benzodiazepine Urine VISTA NEGATIVE (< 200 ng/mL); Cocaine Urine VISTA NEGATIVE (< 300 ng/mL); Ecstacy Urine VISTA NEGATIVE (< 500 ng/mL); Methadone Urine VISTA NEGATIVE (< 300 ng/mL); PCP Urine VISTA NEGATIVE (< 25 ng/mL); THC Urine VISTA NEGATIVE (< 50 ng/mL); Vista UDS pH Range 6
== END ==
PROVIDERS: Family Provider Internal Medicine; PCP Internal Medicine; Visit Provider Internal Medicine
DX: F41.9 Anxiety disorder, unspecified (principal)
CPT/HCPCS: 80307

== ENCOUNTER 2019-01-26 22:43 | Emergency (ER) | payer OTHER, SELFPAY ==
[2018-11-23 11:08] VITALS: BMI 51.5
[2019-01-26 22:43] VITALS: BP 139/78; PULSE 126; RESP 15; TEMP 37.2; O2SAT 99; BMI 45.8
--- NOTE | 2019-01-26 23:10 | ED.VISSUMM ---
- ER Visit Summary Date of Service: 01/26/19 Chief Complaint: Left flank pain History of Present Illness: The patient is a 23 F who presents the emergency department with a unique constellation of complaints. She states that around 1600 hrs. today she was experiencing intermittent stabbing right flank pain. This is started to calm down. She states she became concerned because she was diagnosed with nonalcoholic fatty liver disease. She was told if she ever experience pain on the right side of her abdomen she should be evaluated. She states that her right great toe was swollen and itchy yesterday but that is resolved. Today she notes the ball of her left foot near the third MTP joint feels swollen and itchy. She also states the left middle finger at the tip feels swollen and itchy and now she believes the right middle finger is starting to feel the same way. She denies any urinary symptoms. She notes that she had some rhinorrhea yesterday that resolved. No rashes. No fevers. Physical Examination: Afebrile vital signs are stable Gen: Well-nourished well-developed Head: Normocephalic atraumatic Eyes: Perrl EOMI ENT: TMs clear no rhinorrhea moist mucous membranes Neck: Supple no lymphadenopathy no JVD nontender CVS: Regular rate rhythm no murmurs normal S1-S2 Respiratory: No distress clear to auscultation bilaterally chest nontender Abdomen: Soft nontender nondistended normal bowel sounds no masses Back: Nontender Extremity: Nontender no edema Skin: Normal color no rash Neuro: alert orientated ?3 CN II-XII intact normal strength sensation reflexes gait cerebellar Psych: Normal affect normal mood Test Results: CBC was normal. Potassium 3.3. ALT 135 AST of 60 normal lipase normal total bili and alk phos. Urinalysis normal. test Emergency Department Course and Treatment: I do not have a clear etiology for the patient's symptoms. I also do not see anything emergent requiring hospitalization. Of asked her to follow-up with her doctor return if worsening or concerns Impression: 1. Right flank pain 2. Left foot pain 3. Left middle finger paresthesia This note was generated with [employer] dictation software. It may contain incorrect words, spelling, and punctuation that were not noted in review of the chart prior to signing ED Disposition - Plan for ED Patient: Disposition: Home or Assisted Living Instructions: FLANK PAIN, Uncertain Cause Referrals: Olga Car MD [Primary Care Provider] - 3-5 Days if not improving
[2019-01-26 23:44] VITALS: TEMP 36.6
[2019-01-26 23:44] LABS: Absolute Lymphocyte Count 2.56 X10^3/uL (0.83-4.51); Absolute Neutrophil Count 6.1 X10^3/uL (2.0-7.7); Basophil# 0.02 X10^3/uL; Basophil% 0.2 % (0-1); Eosinophils% 1.1 % (0-5); Hemoglobin 14.3 g/dL (12.0-15.0); Lymphocyte # 2.56 X10^3/ul (4.0); Lymphocyte % 27.2 % (19-41); Mean Corpuscular Hgb 28.7 pg (27.0-32.0); Mean Corpuscular Volume 84.3 fL (81-99); Mean Platelet Vol. 10.2 fl (6.2-12.0); Monocyte% 6.4 % (0-10); NRBC Flagged by Analyzer 0 % (0-5); Neutrophil % 64.8 % (47-70); Platelet Count 319 K/mm3 (150-450); RBC Distribution Width CV 13.1 % (11.6-14.6); RBC Distribution Width SD 40.2 fl (35.1-43.9); Red Blood Count 4.98 M/mm3 (4.2-5.4); White Blood Count 9.4 K/mm3 (4.4-11.0)
[2019-01-26 23:46] LABS: Mucous, Urine 0 SEEN /hpf (<or=2+); Red Blood Cells-Urine 0 SEEN /hpf (0-5); White Blood Cells 0 SEEN /hpf (0-5)
[2019-01-26 23:47] VITALS: BP 164/93; PULSE 97; RESP 18; O2SAT 100
[2019-01-26 23:52] LABS: Color, Urine Straw (Yellow); Glucose, Dipstick Normal (Normal); Ketone-Dipstick 5 mg/dl (Negative); Leukocyte Esterase-Dipstick Negative /ul (Negative); Nitrite-Dipstick Negative (Negative); Occult Blood-Urine Negative /ul (Negative); Protein-Dipstick Negative (Negative); Urine Bilirubin Dipstick Negative (Negative); Urine Clarity Clear (Clear); Urine Urobilinogen Normal (Normal); Urine pH 6.5 (5.0 - 8.0)
[2019-01-26 23:56] LABS: Internal QC Validated? YES +Cl - CLEAR BKGD; Pregnancy, Urine Negative Negative
[2019-01-27 00:03] LABS: AST(SGOT) 60 U/L (15-37); Alanine Aminotransfer ALT/SGPT 135 U/L (13-56); Albumin, Serum 3.7 g/dL (3.2-5.0); Alkaline Phosphatase 104 U/L (45-117); Anion Gap 8 (5-15); BUN 19 mg/dL (7-18); BUN/Creat Ratio 19.6 RATIO (10-20); Calcium,Total 9.3 mg/dL (8.5-10.1); Chloride 106 mmol/L (98-107); Creatinine, Serum 0.97 mg/dL (0.55-1.02); EST Glomerular Filtration Rate 74 mL/min (>60); Est Glom Filt Rate - Afr Amer 90 mL/min (>60); Estimated Creatinine Clearance 79.78 ml/min; Globulin 4.1 g/dL (2.2-4.2); Glucose 89 mg/dL (74-106); Lipase 106 U/L (73-393); Potassium 3.3 mmol/L (3.5-5.1); Protein, Total 7.8 g/dL (6.4-8.2); Sodium Level 140 mmol/L (136-145)
[2019-01-27 00:14] LABS: Bacteria RARE /hpf (None Seen); Squamous Epithelial Cells - UA 0-5 SEEN /hpf (5-10)
== END 2019-01-27 00:48 | disposition home or self-care (01) ==
PROVIDERS: Emergency Provider Emergency Medicine; Family Provider Internal Medicine; PCP Internal Medicine
DX: R10.9 Unspecified abdominal pain (principal); M79.672 Pain in left foot; R20.2 Paresthesia of skin; K76.0 Fatty (change of) liver, not elsewhere classified
CPT/HCPCS: 80048; 80076; 81001; 81025; 83690; 85025; 99283

== ENCOUNTER → 2019-02-09 11:27 | Outpatient (CLI) | payer OTHER, SELFPAY ==
[2019-02-09 10:26] VITALS: BMI 43.9
[2019-02-09 11:29] LABS: Bacteria 0 SEEN /hpf (None Seen); Mucous, Urine 0 SEEN /hpf (<or=2+); Red Blood Cells-Urine 0 SEEN /hpf (0-5); White Blood Cells 0 SEEN /hpf (0-5)
[2019-02-09 12:37] LABS: Color, Urine Yellow (Yellow); Glucose, Dipstick Normal (Normal); Ketone-Dipstick 15 mg/dl (Negative); Leukocyte Esterase-Dipstick Negative /ul (Negative); Nitrite-Dipstick Negative (Negative); Occult Blood-Urine Negative /ul (Negative); Protein-Dipstick Negative (Negative); Urine Bilirubin Dipstick Negative (Negative); Urine Clarity Clear (Clear); Urine Urobilinogen Normal (Normal)
[2019-02-09 12:45] LABS: Squamous Epithelial Cells - UA 0-5 SEEN /hpf (5-10)
== END ==
PROVIDERS: Family Provider Internal Medicine; PCP Internal Medicine; Visit Provider Internal Medicine
DX: R10.9 Unspecified abdominal pain (principal)
CPT/HCPCS: 81001

== ENCOUNTER → 2019-02-22 07:34 | Outpatient (CLI) | payer OTHER, SELFPAY ==
[2019-02-09 10:26] VITALS: BMI 43.9
--- NOTE | 2019-02-22 07:35 | RDU_ITS ---
Reason For Study: Hypertension Right Renal Artery Left Renal Artery Right renal artery ostium Unable to locate left renal artery 112.5/32.1 RSV/EDV. from supine or decubitus position. Right renal artery proximal Left Renal Dimensions 181.3/49.6 PSV/EDV. Unable to locate left kidney. Right renal artery mid 190.1/60.6 Probable structure noted may be PSV/EDV. left kidney but unable to Right renal artery distal 170/58.6 demonstrate any flow within. PSV/EDV. Right Renal Parenchyma Upper Pole Medula 36.2/13.3 PSV/EDV. Right upper pole medulla EDR 0.37 . Right upper pole medulla R.I. 0.63 . Upper Jonathan Cortx 23.7/7.1 PSV/EDV. Right upper pole cortex EDR 0.30 . Right upper pole cortex R.I. 0.70 . Right lower Pole medulla 32.9/12 PSV/EDV . Right lower pole medulla EDR 0.36 . Right lower pole medulla R.I. 0.63 . Lower Pole Cortex 24.3/7.7 PSV/EDV. Right lower pole cortex EDR 0.32 . Right lower pole cortex R.I. 0.68 . Right Renal Hilar Right Hilar avg 57.2/16.1 PSV/EDV. Right hilar acceleration time 50 m/sec. Right Renal Dimensions Right kidney size 11.52 cm . Right cortical dimension 1.83 cm . Aorta Proximal abdominal aorta 1.28 x 1.24 cm . Proximal abdominal aorta peak systolic velocity is 105.2 cm/sec . Distal abdominal aorta 1.33 x 1.33 cm . Distal abdominal aorta peak systolic velocity is 139.9 cm/sec . Interpretation Summary Maximal aortic diameter distally at 1.33 x 1.33 cm Elevated velocity distal aortic flow at 139 cm/s flow making correlation with renal artery to aortic ratio not reliable <60% stenosis right renal artery Right renal length normal at 11.52cm Left kidney could not be reliably identified with no flow located within the possible kidney or renal artery. Clinical correlation or additional imaging as indicated Ordering Physician: Olga Car Referring Physician: Olga Car Performed By: Karen Shaffer RVT
== END ==
PROVIDERS: Family Provider Internal Medicine; PCP Internal Medicine; Referring Provider Internal Medicine; Visit Provider Internal Medicine
DX: I10 Essential (primary) hypertension (principal)
CPT/HCPCS: 93975

== ENCOUNTER → 2019-03-22 11:12 | Outpatient (CLI) | payer OTHER, SELFPAY ==
[2019-03-22 10:44] VITALS: BMI 45.8
[2019-03-22 12:23] LABS: ALB/GLOB Ratio 0.8 RATIO (0.9-2.4); AST(SGOT) 49 U/L (15-37); Alanine Aminotransfer ALT/SGPT 162 U/L (13-56); Albumin, Serum 3.5 g/dL (3.2-5.0); Alkaline Phosphatase 119 U/L (45-117); Anion Gap 5 (5-15); BUN 14 mg/dL (7-18); BUN/Creat Ratio 19.3 RATIO (10-20); Calcium,Total 9.2 mg/dL (8.5-10.1); Chloride 106 mmol/L (98-107); Creatinine, Serum 0.72 mg/dL (0.55-1.02); EST Glomerular Filtration Rate 104 mL/min (>60); Est Glom Filt Rate - Afr Amer 126 mL/min (>60); Globulin 4.3 g/dL (2.2-4.2); Glucose 88 mg/dL (74-106); Potassium 3.6 mmol/L (3.5-5.1); Protein, Total 7.8 g/dL (6.4-8.2); Sodium Level 138 mmol/L (136-145)
== END ==
LOC: BIMLAB 11:13
PROVIDERS: PCP Internal Medicine; Referring Provider Internal Medicine; Visit Provider Internal Medicine
DX: R74.8 Abnormal levels of other serum enzymes (principal)
CPT/HCPCS: 36415; 80053

== ENCOUNTER → 2019-05-03 06:09 | Outpatient (CLI) | payer OTHER, SELFPAY ==
[2019-03-22 10:44] VITALS: BMI 45.8
--- NOTE | 2019-05-03 06:09 | CT_ITS ---
STUDY: CT ABDOMEN WITHOUT CONTRAST REASON FOR EXAM: Female, 23 years old. ABN US LEFT KIDNEY. Elevated LFT''s. HTN-rx controlled. RADIATION DOSAGE (If Supplied By Facility): CTDIvol = ( 16.05 ) mGy, DLP = ( 517.20 ) mGycm TECHNIQUE: Transaxial images were obtained without intravenous contrast, and without oral contrast. Sagittal and coronal images were reconstructed. Individualized dose optimization techniques were used for this CT. COMPARISON: None. FINDINGS: The visualized lung bases are unremarkable. The visualized portions of the heart are within normal limits. Normal liver. Normal gallbladder and extrahepatic biliary system. Normal spleen. Normal pancreas. Normal bilateral adrenal glands. There is compensatory hypertrophy of the right kidney. Marked degree of atrophy of the left kidney with a small cysts and punctate calcification in the lower pole. Normal visualized stomach. Normal small intestine. Moderate amount of fecal material is seen in the right hemicolon. The appendix is visualized and appears normal. Normal abdominal aorta. Normal inferior vena cava. Normal retroperitoneum. Normal abdominal wall. Normal osseous structures. CT/Abdomen without IV Contrast IMPRESSION: Marked degree of atrophy of the left kidney with multiple small cysts and a punctate calcification in the lower pole. There is compensatory hypertrophy of the right kidney. Electronically Signed: Jesus Sung, at 8:50 EDT , Service support ,
== END ==
PROVIDERS: PCP Internal Medicine; Referring Provider Internal Medicine; Visit Provider Internal Medicine
DX: R93.422 Abnormal radiologic findings on diagnostic imaging of left kidney (principal)
CPT/HCPCS: 74150

== ENCOUNTER 2019-05-18 19:26 | Observation (INO) | payer OTHER, SELFPAY ==
[2019-05-12 08:50] VITALS: BMI 40.6
[2019-05-18] VITALS (8 sets, daily range): BP systolic 129–155; BP diastolic 82–96; PULSE 73–105; RESP 16–18; TEMP 36.7–37; O2SAT 98–100; BMI 39.7
--- NOTE | 2019-05-18 19:49 | CT_ITS ---
STUDY: CT ABDOMEN AND PELVIS WITH CONTRAST REASON FOR EXAM: Female, 23 years old. Right-sided flank pain. Recent scan demonstrated left kidney is smaller than right. A liver disease. Hypertension. RADIATION DOSAGE (If Supplied By Facility): CTDIvol = ( 16.94 ) mGy, DLP = ( 1256.14 ) mGycm TECHNIQUE: Transaxial images were obtained from the dome of the diaphragm to the symphysis pubis without oral contrast. IV 100mL Isovue-300 was administered. Sagittal and coronal images were reconstructed. Individualized dose optimization techniques were used for this CT. COMPARISON: CT of the abdomen, May 03, 2019. FINDINGS: The visualized lung bases are unremarkable. The visualized portions of the heart are within normal limits. Normal liver. Normal gallbladder and extrahepatic biliary system. Normal spleen. Normal pancreas. Normal bilateral adrenal glands. The right kidney is enlarged measuring 13 cm in length. There is normal cortical thickness echogenicity. There is no mass or renal calculi. There is no hydronephrosis. Normal visualized right ureter. kidney is atrophic with minimal residual cortex. There are multiple small renal cysts. No renal calculi or hydronephrosis. The left ureter is not visualized. Normal visualized stomach. Normal small intestine. And colonic diverticuli without acute inflammatory change. The retrocecal appendix is distended and fluid-filled with mild wall thickening and periappendiceal stranding. This measures 1.3 cm in diameter. The findings suggest uncomplicated appendicitis. Normal abdominal aorta. Normal inferior vena cava. Normal retroperitoneum. Normal urinary bladder. Normal uterus and ovaries. There is no pelvic lymphadenopathy. Minimal free fluid is seen in posterior cul-de-sac. This is thought to be physiologic. There is no free air within the peritoneal cavity. Normal abdominal wall. Normal osseous structures. CT/Abdomen/Pelvis W IV Cont ONLY IMPRESSION: 1. Appendicitis without perforation or abscess. 2. Atrophic left kidney. The right kidney is mildly enlarged. 3. Scattered colonic diverticuli without inflammatory change. N.B. : The above information has been verbally conveyed by Alexx Vazquez DO to Brenden Suarez MD, on 05/18/2019 21:02:53 (ET). Electronically Signed: Alexx Vazquez DO at 21:04 EDT Tel [phone], Service support ,
[2019-05-18] MEDS: 0.9% Normal Saline 1,000 ML 1000 ML IV (20:15)
[2019-05-18] MEDS: Ondansetron 4 MG/2 ML Vial IV (20:15)
[2019-05-18 20:21] LABS: Absolute Lymphocyte Count 2.07 X10^3/uL (0.83-4.51); Absolute Neutrophil Count 11.6 X10^3/uL (2.0-7.7); Basophil# 0.04 X10^3/uL; Basophil% 0.3 % (0-1); Eosinophil# 0.07 X10^3/uL; Eosinophils% 0.5 % (0-5); Hematocrit 42.2 % (37-47); Hemoglobin 13.7 g/dL (12.0-15.0); Lymphocyte # 2.07 X10^3/ul (4.0); Lymphocyte % 14.2 % (19-41); Mean Corp Hgb Conc 32.5 g/dL (32-36); Mean Corpuscular Hgb 27.9 pg (27.0-32.0); Mean Corpuscular Volume 85.9 fL (81-99); Mean Platelet Vol. 9.8 fl (6.2-12.0); Monocyte# 0.77 X10^3/uL; Monocyte% 5.3 % (0-10); NRBC Flagged by Analyzer 0 % (0-5); Neutrophil # 11.59 X10^3/uL (2.7-7.7); Neutrophil % 79.4 % (47-70); Platelet Count 342 K/mm3 (150-450); RBC Distribution Width SD 40.3 fl (35.1-43.9); Red Blood Count 4.91 M/mm3 (4.2-5.4); White Blood Count 14.6 K/mm3 (4.4-11.0)
[2019-05-18 20:28] LABS: ALB/GLOB Ratio 0.8 RATIO (0.9-2.4); AST(SGOT) 24 U/L (15-37); Alanine Aminotransfer ALT/SGPT 30 U/L (13-56); Albumin, Serum 3.5 g/dL (3.2-5.0); Alkaline Phosphatase 97 U/L (45-117); Anion Gap 7 (5-15); BUN 11 mg/dL (7-18); BUN/Creat Ratio 12.7 RATIO (10-20); Calcium,Total 9.5 mg/dL (8.5-10.1); Chloride 104 mmol/L (98-107); Creatinine, Serum 0.86 mg/dL (0.55-1.02); EST Glomerular Filtration Rate 85 mL/min (>60); Est Glom Filt Rate - Afr Amer 102 mL/min (>60); Estimated Creatinine Clearance 89.98 ml/min; Globulin 4.2 g/dL (2.2-4.2); Glucose 109 mg/dL (74-106); Lipase 67 U/L (73-393); Potassium 3.7 mmol/L (3.5-5.1); Protein, Total 7.7 g/dL (6.4-8.2); Sodium Level 140 mmol/L (136-145)
[2019-05-18 20:28] LABS: Bacteria 0 SEEN /hpf (None Seen); Mucous, Urine 0 SEEN /hpf (<or=2+)
[2019-05-18 20:30] LABS: Color, Urine Yellow (Yellow); Glucose, Dipstick Normal (Normal); Ketone-Dipstick 5 mg/dl (Negative); Leukocyte Esterase-Dipstick Negative /ul (Negative); Nitrite-Dipstick Negative (Negative); Occult Blood-Urine 250 /ul (Negative); Protein-Dipstick Negative (Negative); Urine Bilirubin Dipstick Negative (Negative); Urine Clarity Clear (Clear); Urine Urobilinogen Normal (Normal); Urine pH 6.5 (5.0 - 8.0)
[2019-05-18 20:34] LABS: Internal QC Validated? YES +Cl - CLEAR BKGD; Pregnancy, Urine Negative Negative
[2019-05-18 20:37] LABS: Red Blood Cells-Urine 0-5 SEEN /hpf (0-5); Squamous Epithelial Cells - UA 0-5 SEEN /hpf (5-10); White Blood Cells 0-5 SEEN /hpf (0-5)
--- NOTE | 2019-05-18 21:03 | ED.RN ---
PT REFUSED MORPHINE AT THIS TIME, RATING PAIN AT 1.
--- NOTE | 2019-05-18 21:10 | ED.DCSUM_ITS ---
- ER Visit Summary Date of Service: 05/18/19 Chief Complaint: Abdominal pain History of Present Illness: The patient is a 23 F with right side abdominal pain that increased throughout the day today. No other associated symptoms. She tried taking Tylenol, but it was not helping. Physical Examination: Afebrile and vital signs unremarkable. Right lower quadrant tenderness without guarding or rebound. Test Results: White count 14.6. CMP, lipase, urinalysis, hCG otherwise unremarkable. CT showed appendicitis without abscess or perforation. Emergency Department Course and Treatment: Patient initially received Zofran and morphine. N.p.o. CT showed appendicitis. She was treated with Zosyn. Dr. Trujillo was contacted for further care. Treatment Plan: As above Disposition: Admission Impression: 1. Acute appendicitis This note was generated with [employer] dictation software. It may contain incorrect words, spelling, and punctuation that were not noted in review of the chart prior to signing ED Disposition - Plan for ED Patient: Referrals: Olga Car MD [Primary Care Provider] -
[2019-05-18] MEDS: Morphine 4 MG/ML Syringe IV (21:24)
--- NOTE | 2019-05-18 21:50 | APP_PTH ---
PATIENT: BRANDO PALMA LOC: MS3 U#:[id number] AGE/SX: 23/F [place] [facility] [place]: Dr. Aj Trujillo MD : 1995 BED: 1 DIS: 05/19/2019 SPEC #: [id number] RECD: 05/19/19 08:52 STATUS: STEFANY REQ #: [id number] JANIS: 05/18/19 21:[address]: Aj Trujillo DEPT: SURGICAL PATHOLOGY RECD BY: Nehemias Faith ENTERED: 05/19/19 10:15 SP TYPE: APPENDIX OTHR DR: Dr. Olga Car MD Tissues: Appendix, NOS Procedures: Surgery Specimen Level III HEADER OPERATION: Laparoscopic appendectomy PRE-OP DIAGNOSIS: Acute appendicitis TISSUE SUBMITTED: Appendix MICROSCOPIC DIAGNOSIS Appendix, appendectomy: Acute appendicitis. Acute serositis. AM:jagdeep 05/20/19 MICROSCOPIC DESCRIPTION Slides are reviewed. GROSS DESCRIPTION Received is one container labeled with the patient's name and designated appendix. The specimen consists of an appendix measuring 8 cm in length and up to 0.7 cm in diameter. The serosa is congested. No obvious perforation is identified. The lumen is patent. Test Inspection Engineer sections are submitted in one cassette. / AM:jagdeep 05/19/19 TC:2 CPT: 13443
--- NOTE | 2019-05-18 22:02 | DCINST_ITS ---
Discharge Diet: Light diet - advance as tolerated - if you have questions about your diet instructions, please talk to you doctor. Discharge Activity: May Not Drive - for 1 3-5 days or while taking narcotic pain medicine. May shower in (days): 1 Lifting Restrictions: 10 pounds Call your doctor if your incision/area has: Continuous Slow Oozing, Sudden Increased Bleeding, Increased Pain/ Swelling, Increased Redness, Foul Smelling Discharge Call your doctor if you observe: Fever of 101 or Higher Suture Line Care: Avoid Pulling/Pushing, Avoid Pinching/Bending Additional Dressing/Incision Instructions:: Change or remove dressing in 4 days. Leave steri-strips in place for 1 week. Additional Instructions: You may contact the office in 1 week or less for return to work release Allergies/Adverse Reactions: Allergies ibuprofen Allergy (Verified 05/18/19 19:31) NEEDS FOLLOW-UP TOOK FROM KIDNEY MD TO NOT TAKE naproxen [From Aleve] Allergy (Verified 05/12/19 08:49) Hives Medications to take at Discharge Loratadine [Claritin] 10 mg PO PRN PRN 08/14/17 norethindrone (contraceptive) 0.35 mg tablet 0.35 mg PO DAILY 12/29/17 fluticasone propionate 50 mcg/actuation nasal spray,suspension 2 spray INTRANASAL DAILY 06/02/18 Buspirone HCl 7.5 mg PO BID 05/19/19 Hydrocodone Bitart/Apap 5-325 [[place] 5MG-325MG] 1 tablet PO Q6H PRN PRN 2 Days #5 tablet 05/19/19 Labetalol HCl 50 mg PO BID 05/19/19 Montelukast Sodium 10 mg PO QHS 05/19/19 Nifedipine [Nifedipine ER] 60 mg PO DAILY 05/19/19 Potassium Chloride [K-Tab ER] 20 meq PO BID 05/19/19 Triamterene/Hydrochlorothiazid [Triamterene-Hctz 37.5-25 mg Tb] 1 tab PO DAILY 05/19/19 The following prescriptions were given: Hydrocodone Bitart/Apap 5-325 [[place] 5MG-325MG] 1 tablet PO Q6H PRN PRN 2 Days #5 tablet PRN Reason: Pain Transmission Status: Received by [facility]/pharmacy #[id number] Primary Care Physician: Olga Car MD [Primary Care Provider] - Test Results: Test results from this visit will be discussed in further detail at your follow- up appointment, if applicable. Please Follow Up With: Aj Trujillo MD - [phone] When: Call office in one week for verbal followup
--- NOTE | 2019-05-18 22:03 | HP.PCM_ITS ---
Problem List (1) Acute appendicitis Status: Acute Qualifiers: Acute appendicitis type: unspecified acute appendicitis type Qualified Code(s): K35.80 - Unspecified acute appendicitis History of Present Illness Date of Admission: 05/18/19 The patient is a 23 year old F who presents to the emergency room with 1 day history of abdominal pain. She has had 1 to 2 weeks of seasonal allergies. She was recently evaluated by her primary care physician for that. She denies previous abdominal surgery. She denies fever or chills or sweats. She has had an occasional allergic cough Past Medical History Past Medical History (Chronic Problems): Chronic Problems (Last Reviewed 05/12/19 @ 08:50 by Krystin Wang) Anxiety (Chronic) Nonalcoholic fatty liver disease (Chronic) Morbid obesity (Chronic) Hyperlipidemia (Chronic) Obesity (Chronic) High blood pressure (Chronic) Seasonal allergies (Chronic) Medical History: Medical History (Last Reviewed 05/12/19 @ 08:50 by Krystin Wang) Pre-eclampsia (Resolved) O14.90 High blood pressure (Chronic) I10 Seasonal allergies (Chronic) J30.2 Allergies ibuprofen Allergy (Verified 05/18/19 19:31) NEEDS FOLLOW-UP TOOK FROM KIDNEY MD TO NOT TAKE naproxen [From Aleve] Allergy (Verified 05/12/19 08:49) Hives Home Medications: Ambulatory Orders Medication Instructions Recorded Loratadine [Claritin] 10 mg PO PRN PRN 08/14/17 norethindrone (contraceptive) 0.35 0.35 mg PO DAILY 12/29/17 mg tablet nifedipine 60 mg tablet,extended 60 mg PO DAILY #90 tab 06/01/18 release fluticasone propionate 50 2 spray INTRANASAL DAILY 06/02/18 mcg/actuation nasal spray,suspension buspirone 7.5 mg tablet 7.5 mg PO BID #180 tab 01/27/19 triamterene 37.5 1 tab PO DAILY #60 tab 02/03/19 mg-hydrochlorothiazide 25 mg tablet potassium chloride 20 mEq 20 meq PO BID #60 tab 03/25/19 tablet,extended release labetalol 100 mg tablet 50 mg PO BID #60 tab 03/30/19 montelukast 10 mg tablet 10 mg PO QHS #90 tab 05/12/19 Smoking Status: Never smoker Review of Systems Constitutional: Denies: Fever Cardiovascular: Denies: Chest Pain Respiratory: Reports: Cough Gastrointestinal: Reports: Abdominal Pain. Denies: Vomiting Endocrine: Denies: Change in Body Habitus VTE Information - Inpt Only VTE Present on Admission: No Patient Problems: Active and Suspected Problems (Last Reviewed 05/12/19 @ 08:50 by Krystin Wang) Acute appendicitis (Acute) - Physical Exam Vitals/I&O's: Vital Signs Temp Pulse Resp BP Pulse Ox 98.0 F 73 16 146/84 H 99 05/18/19 21:30 05/18/19 21:30 05/18/19 21:30 05/18/19 21:30 05/18/19 21:30 Oxygen Delivery Method Room Air Weight: 238 lb 15.697 oz Body Mass Index (BMI) 39.7 Intake and Output for Last 24 Hours 05/16/19 05/17/19 05/18/19 23:59 23:59 23:59 Intake Total 1000 / 1000 Balance 1000 / 1000 General: Alert, Oriented x3, Cooperative, No apparent distress HEENT: Atraumatic Oral: Moist Mucosa Lungs: Clear to auscultation Cardiovascular: Regular rate, Regular Rhythm Abdomen: Bowel Sounds Present, Soft, Non Tender, Hypoactive Bowel Sounds, - - Minimal right lower quadrant tenderness Extremities: No Calf Tenderness Psych/Mental Status: Normal Affect Laboratory Results 05/18/19 20:00: WBC 14.6 H, RBC 4.91, Hgb 13.7, Hct 42.2, MCV 85.9, MCH 27.9, MCHC 32.5, RDW Std Deviation 40.3, RDW Coeff of Tata 13.0, Plt Count 342, MPV 9.8, Immature Gran % (Auto) 0.300, Neut % (Auto) 79.4 H, Lymph % (Auto) 14.2 L, [place] % (Auto) 5.3, Eos % (Auto) 0.5, Baso % (Auto) 0.3, Absolute Neuts (auto) 11.6 H, Absolute Lymphs (auto) 2.07, Nucleated RBC % 0 05/18/19 20:00: Sodium 140, Potassium 3.7, Chloride 104, Carbon Dioxide 29.0, Anion Gap 7, BUN 11, Creatinine 0.86, Estim Creat Clear Calc 89.98, Est GFR (MDRD) Af Amer 102, Est GFR (MDRD) Non-Af 85, BUN/Creatinine Ratio 12.7, Glucose 109 H, Calcium 9.5, Total Bilirubin 0.50, AST 24, ALT 30, Alkaline Phosphatase 97, Total Protein 7.7, Albumin 3.5, Globulin 4.2, Albumin/Globulin Ratio 0.8 L, Lipase 67 L 05/18/19 20:10: Urine Test Negative 05/18/19 20:10: Urine Color Yellow, Urine Clarity Clear, Urine pH 6.5, Ur Specific [place] 1.010, Urine Protein Negative, Urine Glucose (UA) Normal, Urine Ketones 5 H, Urine Occult Blood 250 H, Urine Nitrite Negative, Urine Bilirubin Negative, Urine Urobilinogen Normal, Ur Leukocyte Esterase Negative, Urine RBC 0-5 SEEN, Urine WBC 0-5 SEEN, Ur Squamous Epith Cells 0-5 SEEN, Urine Bacteria 0 SEEN, Urine Mucus 0 SEEN Assessment/Plan All Active Problems (Last Reviewed 05/12/19 @ 08:50 by Krystin Wang) Acute appendicitis (Acute) Menstruation, abnormal (Acute) Abnormal liver enzymes (Acute) Pre-eclampsia (Resolved) 33 weeks gestation of (Acute) Elevated blood pressure affecting in third trimester, antepartum (Acute) 37 weeks gestation of (Acute) Pre-eclampsia in third trimester (Acute) Vacuum extraction, delivered, current hospitalization (Acute) 23-year-old female with findings very much consistent with acute appendicitis based upon CT which I have reviewed. White count is elevated at 14,000. I propose a laparoscopic appendectomy with possible conversion to an open technique. The patient is obese and I believe that an open approach would be technically more challenging and with increased potential risk for wound infection. She has had an opportunity to ask and have questions answered. We will proceed directly. This will limit the amount of hospital time possible. Aj Trujillo M.D., F.A.C.S.
--- NOTE | 2019-05-18 22:10 | ED.RN ---
REPORT WAS CALLED TO VINEET IN SURGERY.
[2019-05-18] MEDS: Bupivacaine Mpf 0.5% 30 ML VIAL (23:00)
--- NOTE | 2019-05-18 23:22 | PCM.OPRPT ---
Problem List (1) Acute appendicitis Status: Acute Qualifiers: Acute appendicitis type: unspecified acute appendicitis type Qualified Code(s): K35.80 - Unspecified acute appendicitis Report of Operation Date of Procedure: 05/18/19 Pre-Operative Diagnosis: Acute appendicitis Post-Operative Diagnosis: Same Surgery/Procedure Performed:: Laparoscopic appendectomy Description of Surgical Findings:: Timeout and informed consent was obtained. 23-year-old female was taken to the operating room. She received therapeutic Zosyn from the emergency room. She underwent general endotracheal intubation anesthesia. The abdomen sterilely prepped and draped. 0.5% Marcaine was used as local anesthetic. Throughout the procedure total 30 cc was used. Skin sites were pre-anesthetized. A vertical infraumbilical incision was created. Holding sutures of 0 Vicryl placed. Varies needle inserted. Saline drop test was performed. The abdomen was insufflated with CO2 to a pressure of 10 mmHg pressure. Alisha trocar inserted. 10 laparoscope inserted. No inserted trocar injuries. 5 mm trochars were placed in the epigastrium and low mid abdomen because of the high positioning of the cecum and high position of the appendix. A window was made in the mesoappendix. A standard height 45 mm stapler was used to transect it flush with the cecum. A vascular height stapler was used to transect the mesoappendix. The mesoappendix was further secured with 2 hemo-lock clips. The appendix was placed in a retrieval bag. Excess blood was mopped up with a 4 x 4 gauze. Inspection revealed that hemostasis and staple lines nicely intact. The air was exited through the safety filter. The appendix was removed through the umbilicus. Remaining trochars were removed. The fascia at the umbilicus approximated with interrupted 0 Vicryl [id number] suture. Skin edges approximated with up to 4 Monocryl subdermal stitches. Steri-Strips and Telfa and OpSite dressings were applied. Sponge and instrument and needle counts were reported to the surgeon be correct. Blood loss minimal. She was taken to the recovery room in satisfactory addition without apparent complication. Specimens appendix. Drains none. Blood loss minimal. Aj Trujillo M.D., F.A.C.S. Type of Anesthesia:: General Anesthesiologist: Vinny You
[2019-05-19 00:06] VITALS: BP 133/87; PULSE 79; RESP 16; TEMP 36.5; O2SAT 100
[2019-05-19] MEDS: Lactated Ringers 1,000 ML 70 ML IV (00:13)
[2019-05-19 00:19] VITALS: BMI 40.2
[2019-05-19 00:30] VITALS: BMI 40.2
[2019-05-19] MEDS: Morphine 2 MG/ML Syringe IV ×2 (00:53→04:07)
[2019-05-19 02:05] VITALS: BP 129/78; PULSE 66; RESP 16; TEMP 36.9; O2SAT 100
[2019-05-19] MEDS: 0.9% Saline Lock 10 ML Syringe IV (04:07)
[2019-05-19] MEDS: Ondansetron 4 MG/2 ML Vial IV (04:07)
[2019-05-19 04:15] VITALS: BP 128/77; PULSE 102; RESP 16; TEMP 36.9; O2SAT 98
[2019-05-19] MEDS: Enoxaparin 40 MG/0.4 ML Syringe SC (06:33)
--- NOTE | 2019-05-19 06:49 | PCM.PN.SRG ---
Patient Problems: Active and Suspected Problems (Last Reviewed 05/12/19 @ 08:50 by Krystin Wang) Acute appendicitis (Acute) Subjective: Patient is sore but her preoperative pain has resolved - Physical Exam Vitals/I&O's: Vital Signs Temp Pulse Resp BP Pulse Ox 98.5 F 102 H 16 128/77 H 98 05/19/19 04:15 05/19/19 04:15 05/19/19 04:15 05/19/19 04:15 05/19/19 04:15 Oxygen Delivery Method Room Air Weight: 241 lb 13.553 oz Body Mass Index (BMI) 40.2 Intake and Output for Last 24 Hours 05/17/19 05/18/19 05/19/19 23:59 23:59 23:59 Intake Total 1100 / 1100 550 / 550 Output Total 450 / 450 Balance 1100 / 1100 100 / 100 Abdomen: Soft, Non Tender, - - Wounds are clean Laboratory Results 05/18/19 20:00: WBC 14.6 H, RBC 4.91, Hgb 13.7, Hct 42.2, MCV 85.9, MCH 27.9, MCHC 32.5, RDW Std Deviation 40.3, RDW Coeff of Tata 13.0, Plt Count 342, MPV 9.8, Immature Gran % (Auto) 0.300, Neut % (Auto) 79.4 H, Lymph % (Auto) 14.2 L, [place] % (Auto) 5.3, Eos % (Auto) 0.5, Baso % (Auto) 0.3, Absolute Neuts (auto) 11.6 H, Absolute Lymphs (auto) 2.07, Nucleated RBC % 0 05/18/19 20:00: Sodium 140, Potassium 3.7, Chloride 104, Carbon Dioxide 29.0, Anion Gap 7, BUN 11, Creatinine 0.86, Estim Creat Clear Calc 89.98, Est GFR (MDRD) Af Amer 102, Est GFR (MDRD) Non-Af 85, BUN/Creatinine Ratio 12.7, Glucose 109 H, Calcium 9.5, Total Bilirubin 0.50, AST 24, ALT 30, Alkaline Phosphatase 97, Total Protein 7.7, Albumin 3.5, Globulin 4.2, Albumin/Globulin Ratio 0.8 L, Lipase 67 L 05/18/19 20:10: Urine Test Negative 05/18/19 20:10: Urine Color Yellow, Urine Clarity Clear, Urine pH 6.5, Ur Specific [place] 1.010, Urine Protein Negative, Urine Glucose (UA) Normal, Urine Ketones 5 H, Urine Occult Blood 250 H, Urine Nitrite Negative, Urine Bilirubin Negative, Urine Urobilinogen Normal, Ur Leukocyte Esterase Negative, Urine RBC 0-5 SEEN, Urine WBC 0-5 SEEN, Ur Squamous Epith Cells 0-5 SEEN, Urine Bacteria 0 SEEN, Urine Mucus 0 SEEN Current Medications Acetaminophen (Tylenol) 650 mg PO Q6H PRN PRN PRN Reason: Pain Score 1-10/10 Enoxaparin Sodium (Lovenox) 40 mg SC DAILY@0600 [facility] Last Admin: 05/19/19 06:33 Dose: 40 mg Documented by: Lactated Ringer's () 1,000 mls @ 70 mls/hr IV .[id number] [facility] Last Admin: 05/19/19 00:13 Dose: 70 mls/hr Documented by: Morphine Sulfate () 2 - 4 mg IV Q2H PRN PRN PRN Reason: Pain Score 1-10/10 Last Admin: 05/19/19 04:07 Dose: 2 mg Documented by: Ondansetron HCl (Zofran) 4 mg IV Q8H PRN PRN PRN Reason: NAUSEA Last Admin: 05/19/19 04:07 Dose: 4 mg Documented by: Oxycodone HCl (Oxyir) 5 - 10 mg PO Q4H PRN PRN PRN Reason: Pain Score 6-10/10 Sodium Chloride () 10 - 40 ml IV UD PRN PRN Reason: SALINE FLUSH Last Admin: 05/19/19 04:07 Dose: 10 ml Documented by: Medical Necessity - Tobacco Use Smoking Status: Never smoker Assessment/Plan All Active Problems (Last Reviewed 05/12/19 @ 08:50 by Krystin Wang) Acute appendicitis (Acute) Menstruation, abnormal (Acute) Abnormal liver enzymes (Acute) Pre-eclampsia (Resolved) 33 weeks gestation of (Acute) Elevated blood pressure affecting in third trimester, antepartum (Acute) 37 weeks gestation of (Acute) Pre-eclampsia in third trimester (Acute) Vacuum extraction, delivered, current hospitalization (Acute) Plan discharge today. Good progress
[2019-05-19] MEDS: oxyCODONE 5 MG Tablet PO (09:00)
[2019-05-19] MEDS: busPIRone 5 MG Tablet 7.5 MG PO (09:01)
[2019-05-19] MEDS: Triamterene 37.5MG/Hctz 25MG Capsule 1 CAP PO (09:02)
[2019-05-19] MEDS: NIFEdipine 60 MG Tablet PO (09:02)
[2019-05-19 09:06] VITALS: BP 131/84; PULSE 99; RESP 18; TEMP 37.3; O2SAT 97
[2019-05-19] MEDS: Labetalol 100 MG Tablet 50 MG PO (09:09)
== END 2019-05-19 11:55 | disposition home or self-care (01) ==
LOC: ED 19:52 → SDC 21:13 → AC 21:13 → MS3 21:39 → SDC 23:40 → MS3 23:40
PROVIDERS: Admitting Provider Surgery; Emergency Provider Emergency Medicine; PCP Internal Medicine; Visit Provider Surgery
PROC: 0DTJ4ZZ Resection of Appendix, Percutaneous Endoscopic Approach (ICD-10-PCS; CPT 44970; principal; 2019-05-18 21:50)
DX: K35.80 Unspecified acute appendicitis (principal); E78.5 Hyperlipidemia, unspecified; E66.01 Morbid (severe) obesity due to excess calories; Z68.41 Body mass index [BMI] 40.0-44.9, adult; F41.9 Anxiety disorder, unspecified; K76.0 Fatty (change of) liver, not elsewhere classified; Z79.899 Other long term (current) drug therapy; Z79.51 Long term (current) use of inhaled steroids; I10 Essential (primary) hypertension
CPT/HCPCS: 44970; 74177; 80053; 81001; 81025; 83690; 85025; 88304; 96365; 96366; 96372; 96375; 96376; 99218; 99281; J7030; J7120; Q9967; A4216; G0378; J2405

== ENCOUNTER → 2019-08-16 08:54 | Outpatient (CLI) | payer OTHER, SELFPAY ==
[2019-06-21 15:52] VITALS: BMI 39.1
--- NOTE | 2019-08-16 09:12 | US_ITS ---
STUDY: ABDOMINAL ULTRASOUND - RIGHT UPPER QUADRANT REASON FOR VISIT: Female, 23 years old ELEVATED LIVER ENZYMES TECHNIQUE: Ultrasound evaluation of the right upper quadrant was performed with real-time and static mukherjee-scale imaging. TECHNICAL QUALITY: Adequate. COMPARISON: None. FINDINGS: Liver: The liver measures 13.8 cm. There is normal echogenicity of the liver. The bile ducts are within normal limits. There is hepatic color flow. The direction of portal flow is hepatopetal. There is no demonstrated mass lesion. Gallbladder: Normal distended gallbladder. The gallbladder wall measures 3.0 mm. There is a negative sonographic Lacey''s sign. There is no pericholecystic fluid. There is a solitary 1.3 cm echogenic gallstone within the gallbladder. Common Bile Duct (C.B.D.): The common bile duct measures 4.5 mm. Pancreas: Normal size of the head, body and tail of the pancreas. There is normal echogenicity of the pancreas. There is no demonstrated pancreatic mass or cyst. Right Kidney: Normal size of the right kidney. The right kidney measures 14.2 x 6.5 x 6.3 cm. Normal renal cortex. The right cortex measures 2.4 cm. There is no demonstrated renal mass or cyst. There is no right hydronephrosis. US/Abdomen Limited IMPRESSION: Cholelithiasis, no sonographic evidence of acute cholecystitis Electronically Signed: Kar New MD at 9:51 EDT , Service support ,
[2019-08-16 10:34] LABS: ALB/GLOB Ratio 0.8 RATIO (0.9-2.4); AST(SGOT) 14 U/L (15-37); Alanine Aminotransfer ALT/SGPT 21 U/L (13-56); Albumin, Serum 3.4 g/dL (3.2-5.0); Alkaline Phosphatase 95 U/L (45-117); Anion Gap 6 (5-15); BUN 14 mg/dL (7-18); BUN/Creat Ratio 21.8 RATIO (10-20); Calcium,Total 9.2 mg/dL (8.5-10.1); Chloride 105 mmol/L (98-107); Creatinine, Serum 0.64 mg/dL (0.55-1.02); EST Glomerular Filtration Rate 119 mL/min (>60); Est Glom Filt Rate - Afr Amer 144 mL/min (>60); Ferritin 29 ng/mL (8-252); Globulin 4.2 g/dL (2.2-4.2); Glucose 82 mg/dL (74-106); Potassium 3.9 mmol/L (3.5-5.1); Protein, Total 7.6 g/dL (6.4-8.2); Sodium Level 139 mmol/L (136-145)
[2019-08-17 16:08] LABS: HEPATITIS B SURFACE AG Negative (Negative); Hepatitis A AB, Total Negative (Negative); Hepatitis A IgM Antibody Negative (Negative); Hepatitis B Core AB IgM Negative (Negative); Hepatitis B Core Ab Total Negative (Negative); Hepatitis C Ab <0.1 s/co ratio (0.0-0.9)
[2019-08-17 18:17] LABS: Anti-Smooth Muscle ABS 5 Units (0-19); Hep B Surface Antibodies Reactive (.)
[2019-08-17 18:18] LABS: ANTINUCLEAR ANTIBODIES DIRECT Negative (Negative)
== END ==
LOC: US 08:55
PROVIDERS: PCP Internal Medicine; Referring Provider Internal Medicine Gastroenterology; Visit Provider Internal Medicine Gastroenterology
DX: R79.89 Other specified abnormal findings of blood chemistry (principal)
CPT/HCPCS: 36415; 76705; 80053; 82728; 83516; 86038; 86704; 86705; 86706; 86708; 86709; 86803; 87340

== ENCOUNTER → 2020-03-12 15:55 | Outpatient (CLI) | payer OTHER, SELFPAY ==
[2019-09-21 15:51] VITALS: BMI 39.1
[2020-03-12 17:09] LABS: Protein, Urine (Random) < 6.0 mg/dL (<11.9)
== END ==
LOC: LABSPEC 15:57
PROVIDERS: PCP Internal Medicine; Visit Provider Student in an Organized Health Care Education/Training Program
DX: O16.2 Unspecified maternal hypertension, second trimester (principal); Z3A.00 Weeks of gestation of pregnancy not specified
CPT/HCPCS: 82570; 84156; 87086; 87088

== ENCOUNTER → 2020-03-13 12:03 | Outpatient (CLI) | payer OTHER, SELFPAY ==
[2019-09-21 15:51] VITALS: BMI 39.1
--- NOTE | 2020-03-13 12:05 | EKG12_ITS ---
Test Reason : PREVENTATIVE OB Blood Pressure : / mmHG Vent. Rate : 099 BPM Atrial Rate : 099 BPM P-R Int : 126 ms QRS Dur : 066 ms QT Int : 344 ms P-R-T Axes : 066 081 005 degrees QTc Int : 441 ms Normal sinus rhythm Nonspecific ST abnormality Abnormal ECG Confirmed by ARLEN VARMA, ANGEL ([id number]), movie editor LAZARUS PALENCIA ([id number] on 03/14/2020 8:02:42 AM Referred By: Jo Palencia Confirmed By:ANGEL MCKINLEY MD
== END ==
PROVIDERS: PCP Internal Medicine; Referring Provider Student in an Organized Health Care Education/Training Program; Visit Provider Student in an Organized Health Care Education/Training Program
DX: I10 Essential (primary) hypertension (principal)
CPT/HCPCS: 93005

== ENCOUNTER → 2020-03-14 09:32 | Outpatient (CLI) | payer OTHER, SELFPAY ==
[2019-09-21 15:51] VITALS: BMI 39.1
--- NOTE | 2020-03-14 09:36 | ECHOD_ITS ---
Reason For Study: Dizziness with Procedure This was a 2D Doppler, Color Flow transthoracic echocardiogram. No Definity used due to . Exam performed in department. Left Ventricle Normal LV size. Mid cavitary false tendon noted. Left ventricular systolic function is normal. The estimated ejection fraction is 65 %. No evidence for diastolic dysfunction. No regional wall motion abnormalities noted. Right Ventricle Normal RV size. Normal systolic function. Atria The left atrium is mildly enlarged. Normal right atrium. No doppler evidence for ASD. Mitral Valve There is no mitral annular calcification. Normal mitral valve. Trivial mitral valve insufficiency. Tricuspid Valve Normal tricuspid valve. Trivial tricuspid valve insufficiency. Aortic Valve Based upon the 2D echocardiographic images obtained a bicuspid aortic valve cannot be excluded and based upon the 2D echocardiographic images obtained and the spectral doppler information obtained there appears to be no obvious aortic valve restriction/stenosis or insufficiency. Pulmonic Valve The pulmonic valve is not well visualized. Great Vessels Normal sized aortic root. Pericardium/Pleural No pericardial effusion. MMode/2D Measurements & Calculations LVIDd: 4.7 cm IVSd: 0.95 cm LA dimension: 4.1 cm LVIDs: 2.9 cm LVPWd: 0.98 cm FS: 38.1 % LAV(MOD-bp): 57.8 ml LA A4 area: 20.7 cm2 RA A4 area: 13.4 cm2 LAV(MOD-bp) Indexed: 27.1 ml/m2 LAV(MOD-sp2): 46.6 ml LAV(MOD-sp4): 68.3 ml Time Measurements MV dec time: 0.17 sec Doppler Measurements & Calculations MV E max richard: 140.7 cm/sec Lat Peak E' Richard: 21.1 cm/sec Med Peak E' Richard: 10.3 cm/sec MV A max richard: 86.3 cm/sec E/E' lat: 6.7 E/E' med: 13.7 MV E/A: 1.6 MV V2 max: 128.3 cm/sec MV P1/2t max richard: 129.1 cm/sec Ao V2 max: 170.1 cm/sec MV max P.6 mmHg MV P1/2t: 67.9 msec Ao max P.6 mmHg MV V2 mean: 70.0 cm/sec MV dec slope: 556.7 cm/sec2 MV mean P.4 mmHg MVA(P1/2t): 3.2 cm2 MV V2 VTI: 26.2 cm LV V1 max: 141.6 cm/sec PA V2 max: 207.1 cm/sec LV V1 max P.0 mmHg Interpretation Summary Left ventricular systolic function is normal. The estimated ejection fraction is 65 %. Mid cavitary false tendon noted. The left atrium is mildly enlarged. Trivial mitral valve insufficiency. Trivial tricuspid valve insufficiency. Based upon the 2D echocardiographic images obtained a bicuspid aortic valve cannot be excluded and based upon the 2D echocardiographic images obtained and the spectral doppler information obtained there appears to be no obvious aortic valve restriction/stenosis or insufficiency. No evidence for diastolic dysfunction. Ordering Physician: Jo Palencia Referring Physician: Jo Palencia Performed By: Orlando Moore RCS
== END ==
PROVIDERS: PCP Internal Medicine; Referring Provider Student in an Organized Health Care Education/Training Program; Visit Provider Student in an Organized Health Care Education/Training Program
DX: O26.891 Other specified pregnancy related conditions, first trimester (principal); R00.0 Tachycardia, unspecified; R42 Dizziness and giddiness; Z3A.12 12 weeks gestation of pregnancy
CPT/HCPCS: 93306

== ENCOUNTER → 2020-07-04 13:54 | Outpatient (CLI) | payer OTHER, SELFPAY ==
[2020-04-12 14:33] VITALS: BMI 39.9
[2020-07-04 15:17] LABS: Hemoglobin 12.2 g/dL (12.0-15.0); Mean Corp Hgb Conc 33.9 g/dL (32-36); Mean Corpuscular Volume 88.5 fL (81-99); Mean Platelet Vol. 9.7 fl (6.2-12.0); Platelet Count 259 K/mm3 (150-450); RBC Distribution Width CV 12.3 % (11.6-14.6); RBC Distribution Width SD 39.8 fl (35.1-43.9); Red Blood Count 4.07 M/mm3 (4.2-5.4); White Blood Count 10.1 K/mm3 (4.4-11.0)
[2020-07-04 15:23] LABS: Partial Thromboplast Time 28.3 Seconds (24.1-36.2); Prothrombin Time (Protime)PT. 12.6 SECONDS (11.7-14.9)
[2020-07-04 15:26] LABS: AST(SGOT) 17 U/L (15-37); Alanine Aminotransfer ALT/SGPT 33 U/L (13-56); Creatinine, Serum 0.63 mg/dL (0.55-1.02); EST Glomerular Filtration Rate 121 mL/min (>60); Est Glom Filt Rate - Afr Amer 146 mL/min (>60); Uric Acid 2.8 mg/dL (2.6-6.0)
== END ==
LOC: WOBLAB 13:55
PROVIDERS: PCP Internal Medicine; Visit Provider Obstetrics & Gynecology
DX: O16.3 Unspecified maternal hypertension, third trimester (principal); Z3A.00 Weeks of gestation of pregnancy not specified
CPT/HCPCS: 36415; 82565; 84450; 84460; 84550; 85027; 85610; 85730

== ENCOUNTER → 2020-07-06 15:22 | Outpatient (CLI) | payer OTHER, SELFPAY ==
[2020-07-05 14:28] VITALS: BMI 39.9
[2020-07-06 16:09] LABS: 24 Hour Urine Protein 450.4 mg/24HR (<150 MG/24HR); 24HR. UA Prot. Total Volume 3850 mL; Urine Protein (24 Hour) 11.7 mg/dL (<11.9)
== END ==
LOC: LABSPEC 15:24
PROVIDERS: PCP Internal Medicine; Visit Provider Obstetrics & Gynecology
DX: O16.3 Unspecified maternal hypertension, third trimester (principal); Z3A.00 Weeks of gestation of pregnancy not specified
CPT/HCPCS: 81050; 84156

== ENCOUNTER → 2020-08-21 15:49 | Outpatient (CLI) | payer OTHER, SELFPAY ==
[2020-07-05 14:28] VITALS: BMI 39.9
== END ==
LOC: LABSPEC 15:52
PROVIDERS: PCP Internal Medicine; Visit Provider Obstetrics & Gynecology
DX: Z36.85 Encounter for antenatal screening for Streptococcus B (principal)
CPT/HCPCS: 87081

== ENCOUNTER 2020-08-29 06:55 | Inpatient (IN) | payer OTHER, SELFPAY ==
[2020-08-23 12:08] VITALS: BMI 44.9
[2020-08-29] VITALS (98 sets, daily range): BP systolic 116–150; BP diastolic 57–104; PULSE 71–136; RESP 16; TEMP 35.6–37.2; O2SAT 96–100; BMI 46.9
[2020-08-29] MEDS: Lactated Ringers 1,000 ML 50 ML IV (08:25)
--- NOTE | 2020-08-29 08:42 | PCM.HP.BLA ---
History and Physical Date of Admission: 08/29/20 Chief complaint: Induction of labor for MARCO without severe features History present illness: 24-year-old G2, P1 at 37 weeks 0 days with MARCO: 09/11/2020 by 9-week ultrasound arrives for induction of labor for Marco without severe features. Denies headache, visual changes, chest pain, shortness of breath, nausea vomiting, right upper quadrant pain. Patient states good movement. This is complicated by Marco without severe features, hydrochlorothiazide exposure in early , patient with nonfunctional left kidney Obstetrical history: G1: 37-week preeclampsia G2: Current Past medical history: Marco without severe features, nonfunctional left kidney, depression Medications: Labetalol 50 mg twice daily, BuSpar, aspirin, vitamin Past surgical history: Appendectomy Allergies: Ibuprofen Social history: Denies smoking, alcohol use, drug use Review of systems: Besides above pertinent positives for review systems was performed and found to be negative Physical exam: Vital signs: Blood pressure 131/75 pulse 90 General: Alert. No acute distress HEENT: Normocephalic atraumatic no cervical adenopathy Cardiac/respiratory: No use of accessory muscles, nonlabored breathing Abdomen: Soft, nontender, gravid Pelvic exam: Cervical exam 1/50/-3 Extremities: No peripheral edema normal peripheral pulses Psych: Normal affect normal demeanor nonpressured speech Labs: White blood cells 9.9, hemoglobin 12.1, 35.4%, platelets 277. Blood type A positive Assessment plan: 24-year-old G2, P1 at 37 weeks and 0 days for induction of labor with Marco with out severe features Admit labor and delivery CEFM GBS negative Cytotec 25 mcg vaginally induction SIP without severe features: HELLP labs now. Continue labetalol. We will treat blood pressures as needed. Routine orders Anesthesia see
[2020-08-29 08:44] LABS: Absolute Lymphocyte Count 2.13 X10^3/uL (0.83-4.51); Absolute Neutrophil Count 8.9 X10^3/uL (2.0-7.7); Basophil# 0.03 X10^3/uL; Basophil% 0.3 % (0-1); Eosinophil# 0.11 X10^3/uL; Eosinophils% 0.9 % (0-5); Hematocrit 35.4 % (37-47); Hemoglobin 12.1 g/dL (12.0-15.0); Lymphocyte # 2.13 X10^3/ul (0.83-4.51); Lymphocyte % 17.9 % (19-41); Mean Corp Hgb Conc 34.2 g/dL (32-36); Mean Corpuscular Hgb 29.2 pg (27.0-32.0); Mean Corpuscular Volume 85.5 fL (81-99); Mean Platelet Vol. 9.5 fl (6.2-12.0); Monocyte# 0.66 X10^3/uL; Monocyte% 5.5 % (0-10); NRBC Flagged by Analyzer 0 % (0-5); Neutrophil # 8.91 X10^3/uL (2.7-7.7); Neutrophil % 74.8 % (47-70); Platelet Count 277 K/mm3 (150-450); RBC Distribution Width CV 12.2 % (11.6-14.6); Red Blood Count 4.14 M/mm3 (4.2-5.4); White Blood Count 11.9 K/mm3 (4.4-11.0)
[2020-08-29 08:55] LABS: AST(SGOT) 138 U/L (15-37); Alanine Aminotransfer ALT/SGPT 269 U/L (13-56); Creatinine, Serum 0.49 mg/dL (0.55-1.02); EST Glomerular Filtration Rate 162 mL/min (>60); Est Glom Filt Rate - Afr Amer 196 mL/min (>60); Estimated Creatinine Clearance 156.56 ml/min
[2020-08-29] MEDS: miSOPROStol 25 MCG TABLET VAGINAL ×2 (09:09→13:22)
[2020-08-29] MEDS: Magnesium Sulfate 4gm/100mL 4 GM/100 ML IV.SOLN. IV (14:35)
[2020-08-29] MEDS: Magnesium Sulfate 4gm/100mL 2 GM/50 ML IV.SOLN. IV (14:56)
[2020-08-29] MEDS: Magnesium Sulfate 20 GM/500 ML BAG IV (15:12)
--- NOTE | 2020-08-29 17:58 | PN.OBGYN_ITS ---
Subjective Subjective Patient beginning to feel some contractions. Otherwise comfortable. Objective Data Objective Data Vital Signs: Vital Signs Temp Pulse Resp BP Pulse Ox 97.9 F 75 16 129/69 H 98 08/29/20 17:21 08/29/20 17:21 08/29/20 17:21 08/29/20 17:21 08/29/20 17:21 Oxygen Delivery Method Room Air Weight: 281 lb 15.539 oz Body Mass Index (BMI) 46.9 Intake & Output: Intake and Output for Last 24 Hours 08/27/20 08/28/20 08/29/20 23:59 23:59 23:59 Intake Total 250 / 250 Output Total 1000 / 1000 Balance -750 / -750 Lab / Micro Data Result Diagrams: 08/29/20 08:25 08/29/20 08:25 Labs: Laboratory Results - last 24 hr 08/29/20 08/29/20 08/29/20 08:25 08:25 08:25 WBC 11.9 H RBC 4.14 L Hgb 12.1 Hct 35.4 L MCV 85.5 MCH 29.2 MCHC 34.2 RDW Std Deviation 38.0 RDW Coeff of Tata 12.2 Plt Count 277 MPV 9.5 Immature Gran % (Auto) 0.600 Neut % (Auto) 74.8 H Lymph % (Auto) 17.9 L [place] % (Auto) 5.5 Eos % (Auto) 0.9 Baso % (Auto) 0.3 Absolute Neuts (auto) 8.9 H Absolute Lymphs (auto) 2.13 Nucleated RBC % 0 Creatinine 0.49 L Estim Creat Clear Calc 156.56 Est GFR (MDRD) Af Amer 196 Est GFR (MDRD) Non-Af 162 AST 138 H ALT 269 H Blood Type A POSITIVE Antibody Screen NEGATIVE Micro: Microbiology 08/29/20 08:25 Mucosa - Nose SARS-CoV-2 Antigen (Rapid) - Final Physical Exam Const alert, oriented x3 and no apparent distress HEENT normocephalic Head and Scalp: atraumatic Neck full ROM Resp normal respiratory effort, no retractions and no use of accessory muscles Narrative: Cervical exam 250/-3. AROM clear fluid. IUPC placed Extremity normal to inspection, full ROM and no clubbing, cyanosis or edema Skin no rashes or lesions noted Psych mental status grossly normal, affect normal, speech normal and activity/motor behavior normal NST FHR Rate Baby A Baseline: 130 Variability:: Moderate Accelerations:: 15 x 15 Decelerations:: None FHR Category:: Category I Uterine Activity:: Every 5 to 10 Assessment & Plan (1) : PLAN: Patient seen and examined. Cervical exam as above, AROM clear fluid, IUPC placed. Status post Cytotec x2, will transition to Pitocin. Patient originally with Marco without severe features but on lab values today found to have LFTs doubled the upper limit of normal now with Marco with severe features based on LFTs. Magnesium 6 g bolus at 2 g an hour given. Educated patient on the findings and risks.
[2020-08-29] MEDS: Oxytocin 30 units/NS 500 ml 30 UNITS/500 ML IV.SOLN IV (18:40)
[2020-08-29] MEDS: Lactated Ringers 500 ML 999 ML IV (18:50)
[2020-08-29] MEDS: fentaNYL-bupivacaine (epidural) 100 ML BAG EPIDURAL (20:35)
[2020-08-30] VITALS (66 sets, daily range): BP systolic 113–145; BP diastolic 62–84; PULSE 72–116; RESP 16–18; TEMP 35.6–37.5; O2SAT 80–100
[2020-08-30] MEDS: Magnesium Sulfate 20 GM/500 ML BAG IV ×4 (00:40→21:22)
[2020-08-30] MEDS: fentaNYL-bupivacaine (epidural) 100 ML BAG EPIDURAL (00:42)
[2020-08-30] MEDS: Oxytocin 30 units/NS 500 ml 30 UNITS/500 ML IV.SOLN 334 UNITS IV (04:31)
[2020-08-30] MEDS: Carboprost Tromethamine 250 MCG/ML Ampul IM (04:35)
--- NOTE | 2020-08-30 04:57 | EX.PCM.OBRPT ---
Vaginal Delivery Findings Description of Procedure: Normal spontaneous vaginal delivery of a viable male , vertex KARY. Head and shoulders delivered with ease. Cord cut and clamped. Baby handed off to nursing. Placenta delivered via cord traction and fundal massage. The laceration was repaired. EBL 400 cc Apgars 8/9. Hemabate 0.25 mg IM given
[2020-08-30] MEDS: Lactated Ringers 1,000 ML 50 ML IV (05:00)
[2020-08-30 05:47] LABS: Absolute Lymphocyte Count 1.42 X10^3/uL (0.83-4.51); Absolute Neutrophil Count 16.6 X10^3/uL (2.0-7.7); Basophil# 0.04 X10^3/uL; Basophil% 0.2 % (0-1); Eosinophil# 0.04 X10^3/uL; Eosinophils% 0.2 % (0-5); Hematocrit 37.3 % (37-47); Hemoglobin 12.6 g/dL (12.0-15.0); Lymphocyte # 1.42 X10^3/ul (0.83-4.51); Lymphocyte % 7.5 % (19-41); Mean Corp Hgb Conc 33.8 g/dL (32-36); Mean Corpuscular Volume 85.9 fL (81-99); Mean Platelet Vol. 9.6 fl (6.2-12.0); Monocyte# 0.74 X10^3/uL; Monocyte% 3.9 % (0-10); NRBC Flagged by Analyzer 0 % (0-5); Neutrophil # 16.56 X10^3/uL (2.7-7.7); Neutrophil % 87.7 % (47-70); Platelet Count 315 K/mm3 (150-450); RBC Distribution Width CV 12.1 % (11.6-14.6); Red Blood Count 4.34 M/mm3 (4.2-5.4); White Blood Count 18.9 K/mm3 (4.4-11.0)
[2020-08-30 06:03] LABS: ALB/GLOB Ratio 0.5 RATIO (0.9-2.4); AST(SGOT) 210 U/L (15-37); Alanine Aminotransfer ALT/SGPT 365 U/L (13-56); Albumin, Serum 2.2 g/dL (3.2-5.0); Alkaline Phosphatase 207 U/L (45-117); Anion Gap 10 (5-15); BUN 9 mg/dL (7-18); BUN/Creat Ratio 15.7 RATIO (10-20); Chloride 104 mmol/L (98-107); Creatinine, Serum 0.57 mg/dL (0.55-1.02); EST Glomerular Filtration Rate 135 mL/min (>60); Est Glom Filt Rate - Afr Amer 163 mL/min (>60); Estimated Creatinine Clearance 134.58 ml/min; Globulin 4.5 g/dL (2.2-4.2); Glucose 94 mg/dL (74-106); LDH 226 U/L (84-246); Magnesium 4.3 mg/dL (1.6-2.6); Potassium 3.6 mmol/L (3.5-5.1); Protein, Total 6.7 g/dL (6.4-8.2); Sodium Level 136 mmol/L (136-145)
[2020-08-30] MEDS: Famotidine 20 MG Tablet PO ×2 (06:32→22:32)
[2020-08-30] MEDS: AMOXICILLIN 500 MG CAPSULE 1000 MG PO ×2 (10:11→22:32)
--- NOTE | 2020-08-30 16:33 | NURSING ---
Called Dr. Nadine Palencia to update about patient's pain and cramping. Pt states that she is almost unable to move because her cramping is so bad. No pain medications are in MAR. Left message for Dr. palencia with his nurse. Waiting on return phone call.
--- NOTE | 2020-08-30 17:22 | NURSING ---
@[id number] Dr. Pernell Palencia calls at this time. Order received for oxycodone 5mg Q6 hours for pain.
[2020-08-30] MEDS: oxyCODONE 5 MG Tablet PO (18:02)
--- NOTE | 2020-08-30 19:41 | PN.OBGYN_ITS ---
Subjective Subjective Denies headache, vision changes, shortness of breath, chest pain, heavy lochia. c/o cramping, but otherwise doing well. Objective Data Objective Data Vital Signs: Vital Signs Temp Pulse Resp BP Pulse Ox 97.0 F L 104 H 18 113/66 96 08/30/20 18:58 08/30/20 19:02 08/30/20 18:58 08/30/20 19:02 08/30/20 19:01 Oxygen Delivery Method Room Air Weight: 127.9 kg Body Mass Index (BMI) 46.9 Intake & Output: Intake and Output for Last 24 Hours 08/28/20 08/29/20 08/30/20 23:59 23:59 23:59 Intake Total 1275.60 / 1275.60 3958.27 / 3958.27 Output Total 1600 / 1600 4150 / 4150 Balance -324.40 / -324.40 -191.73 / -191.73 Lab / Micro Data Result Diagrams: 08/30/20 05:25 08/30/20 05:25 Labs: Laboratory Results - last 24 hr 08/30/20 08/30/20 05:25 05:25 WBC 18.9 H RBC 4.34 Hgb 12.6 Hct 37.3 MCV 85.9 MCH 29.0 MCHC 33.8 RDW Std Deviation 38.0 RDW Coeff of Tata 12.1 Plt Count 315 MPV 9.6 Immature Gran % (Auto) 0.500 Neut % (Auto) 87.7 H Lymph % (Auto) 7.5 L [place] % (Auto) 3.9 Eos % (Auto) 0.2 Baso % (Auto) 0.2 Absolute Neuts (auto) 16.6 H Absolute Lymphs (auto) 1.42 Nucleated RBC % 0 Sodium 136 Potassium 3.6 Chloride 104 Carbon Dioxide 22.0 Anion Gap 10 BUN 9 Creatinine 0.57 Estim Creat Clear Calc 134.58 Est GFR (MDRD) Af Amer 163 Est GFR (MDRD) Non-Af 135 BUN/Creatinine Ratio 15.7 Glucose 94 Calcium 8.0 L Magnesium 4.3 H Total Bilirubin 1.10 H AST 210 H ALT 365 H Alkaline Phosphatase 207 H Lactate Dehydrogenase 226 Total Protein 6.7 Albumin 2.2 L Globulin 4.5 H Albumin/Globulin Ratio 0.5 L Micro: Microbiology 08/29/20 08:25 Mucosa - Nose SARS-CoV-2 Antigen (Rapid) - Final Physical Exam Const alert, oriented x3 and no apparent distress Resp normal respiratory effort and normal air movement Cardio regular rate, regular rhythm, S1 normal heart sound and S2 normal heart sound Uterus Palpation: uterus fundus firm and other OB fundus nontender Extremity no calf tenderness Neuro oriented x3 Neuro Narrative: + 1 b/l LE DTRs, no clonus Assessment & Plan (1) Hypertension complicating , childbirth and puerperium with baby delivered and complication: PLAN: Tolerates magnesium well without si/sx toxicity Repeat labs this evening as previously with hemolysis, elevated liver enzymes. Platelets wnl however Nifedipine
[2020-08-30 20:01] LABS: Hematocrit 34.9 % (37-47); Hemoglobin 11.8 g/dL (12.0-15.0); Mean Corp Hgb Conc 33.8 g/dL (32-36); Mean Corpuscular Hgb 29.1 pg (27.0-32.0); Mean Platelet Vol. 9.2 fl (6.2-12.0); Platelet Count 301 K/mm3 (150-450); RBC Distribution Width CV 12.3 % (11.6-14.6); RBC Distribution Width SD 38.5 fl (35.1-43.9); Red Blood Count 4.06 M/mm3 (4.2-5.4)
[2020-08-30 20:23] LABS: AST(SGOT) 158 U/L (15-37); Alanine Aminotransfer ALT/SGPT 323 U/L (13-56); Albumin, Serum 2.1 g/dL (3.2-5.0); Alkaline Phosphatase 172 U/L (45-117); Bilirubin, Direct 0.38 mg/dL (0.00-0.30); Globulin 4.3 g/dL (2.2-4.2); Protein, Total 6.4 g/dL (6.4-8.2)
--- NOTE | 2020-08-30 23:06 | NURSING ---
Pt having intense cramping and states catheter feels like a rubber band snapping, myrick catheter removed intact. instructed pt to get up to attempt to void in the next 2-3 hours and voids will be measured to assure adequate bladder emptying. pt verbalizes understanding.
[2020-08-31] VITALS (26 sets, daily range): BP systolic 124–142; BP diastolic 67–80; PULSE 74–100; RESP 16–18; TEMP 35.9–37.4; O2SAT 96–99
[2020-08-31] MEDS: oxyCODONE 5 MG Tablet PO ×4 (00:14→20:32)
[2020-08-31 03:49] LABS: Creatinine, Serum 0.76 mg/dL (0.55-1.02); EST Glomerular Filtration Rate 97 mL/min (>60); Est Glom Filt Rate - Afr Amer 117 mL/min (>60); Estimated Creatinine Clearance 100.94 ml/min
[2020-08-31 08:41] LABS: Absolute Lymphocyte Count 1.96 X10^3/uL (0.83-4.51); Absolute Neutrophil Count 10.2 X10^3/uL (2.0-7.7); Basophil# 0.04 X10^3/uL; Basophil% 0.3 % (0-1); Eosinophil# 0.08 X10^3/uL; Eosinophils% 0.6 % (0-5); Hematocrit 35.1 % (37-47); Hemoglobin 11.7 g/dL (12.0-15.0); Lymphocyte # 1.96 X10^3/ul (0.83-4.51); Lymphocyte % 15.1 % (19-41); Mean Corp Hgb Conc 33.3 g/dL (32-36); Mean Corpuscular Hgb 28.9 pg (27.0-32.0); Mean Corpuscular Volume 86.7 fL (81-99); Mean Platelet Vol. 9.2 fl (6.2-12.0); Monocyte# 0.62 X10^3/uL; Monocyte% 4.8 % (0-10); NRBC Flagged by Analyzer 0 % (0-5); Neutrophil # 10.24 X10^3/uL (2.7-7.7); Neutrophil % 78.8 % (47-70); Platelet Count 286 K/mm3 (150-450); RBC Distribution Width CV 12.4 % (11.6-14.6); RBC Distribution Width SD 39.2 fl (35.1-43.9); Red Blood Count 4.05 M/mm3 (4.2-5.4)
[2020-08-31 09:02] LABS: ALB/GLOB Ratio 0.5 RATIO (0.9-2.4); AST(SGOT) 157 U/L (15-37); Alanine Aminotransfer ALT/SGPT 344 U/L (13-56); Albumin, Serum 2.2 g/dL (3.2-5.0); Alkaline Phosphatase 169 U/L (45-117); Anion Gap 6 (5-15); BUN 11 mg/dL (7-18); BUN/Creat Ratio 20.4 RATIO (10-20); Calcium,Total 7.7 mg/dL (8.5-10.1); Chloride 106 mmol/L (98-107); Creatinine, Serum 0.54 mg/dL (0.55-1.02); EST Glomerular Filtration Rate 144 mL/min (>60); Est Glom Filt Rate - Afr Amer 175 mL/min (>60); Estimated Creatinine Clearance 142.06 ml/min; Globulin 4.5 g/dL (2.2-4.2); Glucose 79 mg/dL (74-106); LDH 273 U/L (84-246); Protein, Total 6.7 g/dL (6.4-8.2); Sodium Level 136 mmol/L (136-145)
[2020-08-31] MEDS: Fluticasone 0.05% 1 SPRAY NASAL.SRY 2 SPRAY NASAL (10:21)
[2020-08-31] MEDS: NIFEdipine 60 MG Tablet PO (10:21)
[2020-08-31] MEDS: Famotidine 20 MG Tablet PO ×2 (10:21→22:33)
[2020-08-31] MEDS: Loratadine 10 MG Tablet PO (10:21)
--- NOTE | 2020-08-31 10:45 | PN.OBGYN_ITS ---
Subjective Subjective No overnight complaints, pain well controlled. Objective Data Objective Data Vital Signs: Vital Signs Temp Pulse Resp BP Pulse Ox 97.9 F 86 16 129/67 H 99 08/31/20 08:00 08/31/20 10:33 08/31/20 08:00 08/31/20 10:33 08/31/20 08:00 Oxygen Delivery Method Room Air Weight: 281 lb 15.539 oz Body Mass Index (BMI) 46.9 Intake & Output: Intake and Output for Last 24 Hours 08/29/20 08/30/20 08/31/20 23:59 23:59 23:59 Intake Total 1275.60 / 1275.60 4539.10 / 4539.10 1354.08 / 1354.08 Output Total 1600 / 1600 4450 / 4450 900 / 900 Balance -324.40 / -324.40 89.10 / 89.10 454.08 / 454.08 Lab / Micro Data Result Diagrams: 08/31/20 08:25 08/31/20 08:25 Labs: Laboratory Results - last 24 hr 08/30/20 08/30/20 08/30/20 19:50 19:50 19:50 WBC 14.0 H RBC 4.06 L Hgb 11.8 L Hct 34.9 L MCV 86.0 MCH 29.1 MCHC 33.8 RDW Std Deviation 38.5 RDW Coeff of Tata 12.3 Plt Count 301 MPV 9.2 Immature Gran % (Auto) Neut % (Auto) Lymph % (Auto) [place] % (Auto) Eos % (Auto) Baso % (Auto) Absolute Neuts (auto) Absolute Lymphs (auto) Nucleated RBC % Sodium Potassium Chloride Carbon Dioxide Anion Gap BUN Creatinine 0.76 Estim Creat Clear Calc 100.94 Est GFR (MDRD) Af Amer 117 Est GFR (MDRD) Non-Af 97 BUN/Creatinine Ratio Glucose Calcium Total Bilirubin 0.60 Direct Bilirubin 0.38 H AST 158 H ALT 323 H Alkaline Phosphatase 172 H Lactate Dehydrogenase Total Protein 6.4 Albumin 2.1 L Globulin 4.3 H Albumin/Globulin Ratio 08/31/20 08/31/20 08:25 08:25 WBC 13.0 H RBC 4.05 L Hgb 11.7 L Hct 35.1 L MCV 86.7 MCH 28.9 MCHC 33.3 RDW Std Deviation 39.2 RDW Coeff of [place]ata 12.4 Plt Count 286 MPV 9.2 Immature Gran % (Auto) 0.400 Neut % (Auto) 78.8 H Lymph % (Auto) 15.1 L [place] % (Auto) 4.8 Eos % (Auto) 0.6 Baso % (Auto) 0.3 Absolute Neuts (auto) 10.2 H Absolute Lymphs (auto) 1.96 Nucleated RBC % 0 Sodium 136 Potassium 4.0 Chloride 106 Carbon Dioxide 24.0 Anion Gap 6 BUN 11 Creatinine 0.54 L Estim Creat Clear Calc 142.06 Est GFR (MDRD) Af Amer 175 Est GFR (MDRD) Non-Af 144 BUN/Creatinine Ratio 20.4 H Glucose 79 Calcium 7.7 L Total Bilirubin 0.50 Direct Bilirubin AST 157 H ALT 344 H Alkaline Phosphatase 169 H Lactate Dehydrogenase 273 H Total Protein 6.7 Albumin 2.2 L Globulin 4.5 H Albumin/Globulin Ratio 0.5 L Micro: Microbiology 08/29/20 08:25 Mucosa - Nose SARS-CoV-2 Antigen (Rapid) - Final Physical Exam Const alert, oriented x3, no apparent distress and average body habitus HEENT normocephalic and moist oral mucous membranes Head and Scalp: atraumatic Face and Sinus: normal facial exam Neck full ROM Resp normal respiratory effort, no retractions and no use of accessory muscles GI normal to inspection, nondistended, normoactive bowel sounds Extremity normal to inspection, full ROM and no clubbing, cyanosis or edema Psych mental status grossly normal, affect normal, speech normal and activity/motor be havior normal Assessment & Plan (1) : PLAN: PPD#1 with REY with severe features based on LFTs s/p Mg. LFTs normalizing. No BP meds at this time, will consider for home going. Asymptomatic. Will continue to watch labs until tomorrow.
[2020-08-31] MEDS: AMOXICILLIN 500 MG CAPSULE 1000 MG PO ×2 (10:51→22:33)
[2020-08-31] MEDS: Senna/Docusate Sodium 1 Tablet PO (12:42)
[2020-09-01] VITALS (9 sets, daily range): BP systolic 133–156; BP diastolic 68–96; PULSE 72–95; RESP 16–18; TEMP 36.6–36.8; O2SAT 98
--- NOTE | 2020-09-01 01:30 | NURSING ---
pt reports just returning from bathroom and having intense cramping causing significant pain. pt reports pain is coming in waves with cramps and is utilizing heating pad. pt denies need for additional medication at this time.
[2020-09-01] MEDS: oxyCODONE 5 MG Tablet PO ×2 (02:31→09:24)
[2020-09-01 04:44] LABS: Absolute Neutrophil Count 6.8 X10^3/uL (2.0-7.7); Basophil# 0.04 X10^3/uL; Basophil% 0.4 % (0-1); Eosinophil# 0.26 X10^3/uL; Eosinophils% 2.6 % (0-5); Hematocrit 34.8 % (37-47); Hemoglobin 11.4 g/dL (12.0-15.0); Lymphocyte % 22.8 % (19-41); Mean Corp Hgb Conc 32.8 g/dL (32-36); Mean Corpuscular Hgb 28.9 pg (27.0-32.0); Mean Corpuscular Volume 88.1 fL (81-99); Mean Platelet Vol. 9.3 fl (6.2-12.0); Monocyte# 0.63 X10^3/uL; Monocyte% 6.3 % (0-10); NRBC Flagged by Analyzer 0 % (0-5); Neutrophil # 6.81 X10^3/uL (2.7-7.7); Neutrophil % 67.5 % (47-70); Platelet Count 266 K/mm3 (150-450); RBC Distribution Width CV 12.3 % (11.6-14.6); RBC Distribution Width SD 39.8 fl (35.1-43.9); Red Blood Count 3.95 M/mm3 (4.2-5.4); White Blood Count 10.1 K/mm3 (4.4-11.0)
[2020-09-01 05:09] LABS: ALB/GLOB Ratio 0.5 RATIO (0.9-2.4); AST(SGOT) 115 U/L (15-37); Alanine Aminotransfer ALT/SGPT 327 U/L (13-56); Albumin, Serum 2.1 g/dL (3.2-5.0); Alkaline Phosphatase 150 U/L (45-117); Anion Gap 4 (5-15); BUN 13 mg/dL (7-18); BUN/Creat Ratio 23.9 RATIO (10-20); Calcium,Total 8.5 mg/dL (8.5-10.1); Chloride 107 mmol/L (98-107); Creatinine, Serum 0.54 mg/dL (0.55-1.02); EST Glomerular Filtration Rate 143 mL/min (>60); Est Glom Filt Rate - Afr Amer 173 mL/min (>60); Estimated Creatinine Clearance 142.06 ml/min; Globulin 4.2 g/dL (2.2-4.2); Glucose 83 mg/dL (74-106); LDH 207 U/L (84-246); Potassium 4.1 mmol/L (3.5-5.1); Protein, Total 6.3 g/dL (6.4-8.2); Sodium Level 139 mmol/L (136-145)
[2020-09-01] MEDS: NIFEdipine 60 MG Tablet PO (09:24)
[2020-09-01] MEDS: Fluticasone 0.05% 1 SPRAY NASAL.SRY 2 SPRAY NASAL (09:24)
[2020-09-01] MEDS: AMOXICILLIN 500 MG CAPSULE 1000 MG PO (09:24)
--- NOTE | 2020-09-01 10:14 | PCM.DC.BLA ---
Discharge Summary Date of Admission: 08/29/20 Date of Discharge: 09/01/20 Summary: Patient arrived for induction of labor for Marco without severe features on 08/29/2020. HELLP labs obtained and found to have elevated LFTs, diagnosed with Marco with severe features started on magnesium. Patient delivered 08/30/2020, continue magnesium for 24 hours. Help labs continue to trend downwards. Patient with single functional kidney, unable to use ibuprofen, along with elevated LFTs Tylenol contraindicated. Pain controlled with oxycodone. Overall normal recovery. Discharge home 09/02/2019 Physical Exam Const alert, oriented x3, no apparent distress, average body habitus and no limitations HEENT normocephalic Eyes PERRL Neck full ROM, nuchal rigidity and no lymphadenopathy Lymph Lymphatic: no lymphadenopathy noted Resp normal respiratory effort, normal air movement, no retractions and no use of accessory muscles GI normal to inspection, nondistended, normoactive bowel sounds Extremity normal to inspection, full ROM and normal capillary refill Skin no rashes or lesions noted Neuro oriented x3 Psych mental status grossly normal, thought process normal, cooperative, affect normal and speech normal Meaningful Use Info Meaningful Use Diagnoses (Choose all that apply): None applicable Discharge Plan Admission Admit Date/Time: 08/29/20 06:55 Primary Reason for Your Visit: Induction Attending Provider: Ankur Palencia Primary Care Provider: Olga Car Instructions Additional Instructions / Restrictions: Normal diet. Lifting as tolerated. No intercourse for 4 to 6 weeks. Call if fever greater than 101, increased bleeding, chest pain, shortness of breath. Follow-up 1 week for blood pressure check, 4 to 6 weeks Discharge Orders/Prescriptions Prescriptions: New oxycodone 5 mg Tablet 5 mg PO Q6H PRN PRN (Reason: Pain Score 6-10) 2 Days Qty: 8 RF: 0 Continued fluticasone propionate [Flonase Allergy Relief] 50 mcg/actuation spray,suspension 2 spray INTRANASAL DAILY PRN (Reason: allergies) RF: 0 aspirin 81 mg tablet,delayed release (DR/EC) 81 mg PO DAILY RF: 0 loratadine 10 MG tablet 10 mg PO DAILY RF: 0 famotidine 20 mg Tablet 20 mg PO BID RF: 0 guaifenesin 1,200 mg Tablet Extended Release 12hr 1,200 mg PO BID RF: 0 amoxicillin 500 mg capsule 1,000 mg PO BID RF: 0 labetalol 100 mg tablet 50 mg PO BID Qty: 90 RF: 1 nifedipine 60 mg tablet extended release 60 mg PO DAILY Qty: 90 RF: 1 Referrals / Follow Up: Olga Car MD [Primary Care Provider] - Disposition Disposition (needs filled in before D/C Order can be placed): Home, Self Care
--- NOTE | 2020-09-01 10:19 | PCM.PN.OB ---
Subjective Subjective No overnight complaints. Pain well controlled. Denies headache, chest pain, shortness of breath, nausea vomiting, right upper quadrant pain. Objective Data Objective Data Vital Signs: Vital Signs Temp Pulse Resp BP Pulse Ox 98.3 F 95 16 137/68 H 98 09/01/20 09:18 09/01/20 09:18 09/01/20 09:18 09/01/20 09:18 09/01/20 09:18 Oxygen Delivery Method Room Air Weight: 281 lb 15.539 oz Body Mass Index (BMI) 46.9 Intake & Output: Intake and Output for Last 24 Hours 08/30/20 08/31/20 09/01/20 23:59 23:59 23:59 Intake Total 4539.10 / 4539.10 1354.08 / 1354.08 Output Total 4450 / 4450 900 / 900 Balance 89.10 / 89.10 454.08 / 454.08 Lab / Micro Data Result Diagrams: 09/01/20 04:35 09/01/20 04:35 Labs: Laboratory Results - last 24 hr 09/01/20 09/01/20 04:35 04:35 WBC 10.1 RBC 3.95 L Hgb 11.4 L Hct 34.8 L MCV 88.1 MCH 28.9 MCHC 32.8 RDW Std Deviation 39.8 RDW Coeff of Tata 12.3 Plt Count 266 MPV 9.3 Immature Gran % (Auto) 0.400 Neut % (Auto) 67.5 Lymph % (Auto) 22.8 [place] % (Auto) 6.3 Eos % (Auto) 2.6 Baso % (Auto) 0.4 Absolute Neuts (auto) 6.8 Absolute Lymphs (auto) 2.30 Nucleated RBC % 0 Sodium 139 Potassium 4.1 Chloride 107 Carbon Dioxide 28.0 Anion Gap 4 L BUN 13 Creatinine 0.54 L Estim Creat Clear Calc 142.06 Est GFR (MDRD) Af Amer 173 Est GFR (MDRD) Non-Af 143 BUN/Creatinine Ratio 23.9 H Glucose 83 Calcium 8.5 Total Bilirubin 0.40 AST 115 H ALT 327 H Alkaline Phosphatase 150 H Lactate Dehydrogenase 207 Total Protein 6.3 L Albumin 2.1 L Globulin 4.2 Albumin/Globulin Ratio 0.5 L Micro: Microbiology 08/29/20 08:25 Mucosa - Nose SARS-CoV-2 Antigen (Rapid) - Final Physical Exam Const alert, oriented x3 and no apparent distress HEENT normocephalic and moist oral mucous membranes Head and Scalp: atraumatic Face and Sinus: normal facial exam Eyes PERRL Neck full ROM Resp normal respiratory effort, no retractions and no use of accessory muscles GI normal to inspection, nondistended, normoactive bowel sounds Extremity normal to inspection, full ROM and no clubbing, cyanosis or edema Skin no rashes or lesions noted Psych mental status grossly normal, affect normal, speech normal and activity/motor behavior normal Assessment & Plan (1) : PLAN: day 2, pain well controlled. Bottlefeeding. Marco with severe features status post magnesium. HELLP labs trending downward. Asymptomatic. Will restart at home blood pressure medications labetalol and Procardia. Okay to discharge home today. To follow-up in 1 week for blood pressure check
--- NOTE | 2020-09-06 15:47 | NURSING ---
Mother doing well on follow up phone call really liked Sarai Siddiqui Carly
== END 2020-09-01 13:11 | disposition home or self-care (01) | DRG 807 ==
PROVIDERS: Obstetrics & Gynecology; Admitting Provider Obstetrics & Gynecology; PCP Internal Medicine; Referring Provider Obstetrics & Gynecology; Visit Provider Obstetrics & Gynecology
DX: O11.4 Pre-existing hypertension with pre-eclampsia, complicating childbirth (principal); Z37.0 Single live birth; O10.92 Unspecified pre-existing hypertension complicating childbirth; Z3A.37 37 weeks gestation of pregnancy; Z79.899 Other long term (current) drug therapy
CPT/HCPCS: 36415; 59025; 59050; 80053; 80076; 82565; 83615; 83735; 84450; 84460; 85025; 85027; 86850; 86900; 86901; 87426; 99218; J7120; G0378

== ENCOUNTER 2020-11-29 05:14 | Emergency (ER) | payer OTHER, SELFPAY ==
[2020-11-29 05:18] VITALS: BP 141/80; PULSE 66; RESP 17; TEMP 36.8; O2SAT 98; BMI 45.8
[2020-11-29 05:25] VITALS: BP 132/78; PULSE 74; RESP 16; TEMP 36.8; O2SAT 98
--- NOTE | 2020-11-29 05:37 | ED.VIS.GI ---
HPI HPI - GI History of Present Illness Chief Complaint: Abd Pain Detail of Chief Complaint: Right upper quadrant abdominal pain that she has had off-and-on for several Informant: patient Narrative Narrative: Patient presents with right upper quadrant pain that she says for the last several nights. Patient states that typically the pain comes on when she lays flat and tries to go to bed. Patient has awoken after several hours with pain in the right upper quadrant. Patient denies nausea or vomiting. She denies fever. She does have history of gallstones. Pain is not pleuritic. Food does not seem to affect it. Prior similar symptoms: Yes [facility] Medical History (Updated 11/29/20 @ 06:[address] Eduin Farias, DO) Acute frontal sinusitis, unspecified High blood pressure Non-functioning kidney Pre-eclampsia Seasonal allergies Tachycardia Valvular heart disease Home Medications loratadine 10 mg PO DAILY 08/14/17 [History Last Taken 05/18/19] fluticasone propionate 50 mcg/actuation nasal spray,suspension 2 spray INTRANASAL DAILY PRN 04/12/20 [History Last Taken 08/29/20] guaifenesin 1,200 mg PO BID 08/29/20 [History Last Taken 08/29/20] labetalol 100 mg tablet 50 mg PO BID #90 tab 11/28/20 [Rx Last Taken Unknown] amoxicillin 500 mg PO TID #30 tab 11/29/20 [Rx Last Taken Unknown] nifedipine [Adalat CC] 60 mg PO DAILY 11/29/20 [History Last Taken Unknown] norethindrone (contraceptive) 0.35 mg DAILY 11/29/20 [History Last Taken Unknown] Allergy/AdvReac Type Severity Reaction Status Date / Time ibuprofen Allergy NEEDS Verified 11/29/20 05:16 FOLLOW-UP naproxen [From Aleve] Allergy Hives Verified 11/29/20 05:16 Family History Father Liver disease Hypertension Mother Hypertension Grandmother Anxiety Grandmother Anxiety Grandfather Anxiety Surgical History History of appendectomy Social History Smoking Status: Never smoker alcohol intake: never substance use type: does not use caffeine: No what type of physical activity do you participate in: none ROS ROS ED Constitutional Constitutional ED: Reports systems reviewed and no addt'l complaints, except as documented; Denies body ache(s), change in weight or chills Eyes Eyes: Denies acute decrease in peripheral vision, change in vision, double vision or loss of vision ENT ENT ED: Reports none; Denies ear pain, lip swelling, loss taste/smell, neck pain, otalgia or sore throat Cardiovascular Cardiovascular: Reports none; Denies abdominal pain, chest pain with activity, leg edema, lightheadedness, palpitations, rapid heart rate or syncope Respiratory/Chest Respiratory/Chest: Reports none; Denies change in mental status, dry cough, dyspnea, hemoptysis, shortness of breath at rest or shortness of breath with exertion Gastrointestinal Gastrointestinal: Reports none and abdominal pain; Denies change in stool character, diarrhea, hematemesis, hematochezia, melena, rectal bleeding or vomiting Genitourinary Genitourinary ED: Reports none; Denies abdominal discomfort, anuria, dysuria, genital pain or polyuria Musculoskeletal Musculoskeletal: Reports none; Denies arthralgias, back pain, difficulty walking, extremity pain, muscle weakness or myalgias Integumentary Reports none; Denies abscess or rash Neurologic Neurologic: Reports none; Denies abnormal gait, confusion, focal weakness, frequent falls, headache(s), loss of vision, numbness, paresthesias, radicular pain, vertigo or weakness Psychiatric Psychiatric: Reports systems reviewed and no addt'l complaints, except as documented and none; Denies behavioral changes, confusion, difficulty concentrating, hallucinations, suicidal ideation, tactile hallucinations or visual hallucinations Endocrine Endocrinology: Denies none, cold intolerance, excessive sweating, fatigue or heat intolerance Hematologic/Lymphatic Hematologic/Lymphatic: Reports none; Denies anemia, easy bleeding or easy bruising Allergic/Immunologic Allergic/Immunologic ED: Denies as per HPI, none, lip swelling, mouth swelling, throat swelling, tongue swelling or hives EXAM Physical Exam Const Vital Signs: 11/29/20 05:18 11/29/20 05:25 Temperature 98.2 F 98.2 F Temperature Source Temporal Oral Pulse Rate 66 74 Respiratory Rate 17 16 Blood Pressure 141/80 H 132/78 H Blood Pressure Mean 100 96 Pulse Ox 98 98 Oxygen Delivery Method Room Air Room Air Positive well nourished and well developed General Appearance ED: well developed and NAD HEENT Reports TM's clear and moist mucous membranes normocephalic and atraumatic; Negative for trauma or tenderness Tympanic Membrane ED: Yes TM's clear Eyes PERRL and EOMs intact bilaterally General Eye ED: Negative for pale conjunctiva or scleral icterus Neck no lymphadenopathy, supple and no JVD General: Negative for tenderness Chest Wall inspection of chest normal and palpation of chest normal Chest: Negative for tenderness Resp normal respiratory effort and clear to auscultation bilaterally Effort and Inspection: Negative for respiratory distress or pain with movement Auscultation: Negative for rhonchi, wheezes or diminished lung sounds Cardio regular rate, regular rhythm, S1 normal heart sound, S2 normal heart sound and no murmurs Peripheral Pulses: pulses 2+ throughout GI normal to inspection, nondistended, normoactive bowel sounds, soft to palpation, non-distended and no masses GI Narrative: Patient has tenderness palpation over the right upper quadrant with some guarding. There is no rebound, rigidity, or peritoneal signs. Negative Lacey sign. Palpation: tender Back/Spine no CVA tenderness and no thoracic nor lumbar tenderness Extremity normal to inspection General Extremety ED: Negative for edema General Extremity: Negative for edema Neuro oriented x3, CN's II-XII intact bilaterally, no sensory deficits noted and gait normal Sensorium / Orientation: awake, alert, oriented to person, oriented to place and oriented to time Motor Exam: strength 5/5 throughout and strength abnormal Psych mental status grossly normal Skin no rashes or lesions noted and no wounds MDM MDM MDM Narrative Medical decision making narrative: IV line established on arrival. Patient's lab work-up is unremarkable. She did not require anything for pain. On repeat exam she is not having any pain at this time. I do not feel any imaging is indicated. Patient has history of known gallstones but this is not classic biliary colic. Prior to discharge she asked if she could have an antibiotic for her sinuses as she has had some drainage for several weeks and both her and her son are on antibiotics for same. Patient has drainage and chronic sinus issues. She will be started on amoxicillin. Patient will be referred to general surgery on-call if her symptoms of abdominal pain continue. She is advised to return if worsening pain, fever, vomiting, or condition should worsen anyway. Lab Data Attestation: I reviewed the patient's lab results. Labs: Laboratory Results - last 24 hr 11/29/20 11/29/20 11/29/20 05:45 05:45 05:45 WBC 10.0 RBC 4.75 Hgb 13.1 Hct 40.1 MCV 84.4 MCH 27.6 MCHC 32.7 RDW Std Deviation 40.5 RDW Coeff of Tata 13.2 Plt Count 314 MPV 9.5 Immature Gran % (Auto) 0.200 Neut % (Auto) 73.6 H Lymph % (Auto) 18.9 L [place] % (Auto) 5.5 Eos % (Auto) 1.5 Baso % (Auto) 0.3 Absolute Neuts (auto) 7.4 Absolute Lymphs (auto) 1.89 Nucleated RBC % 0 Sodium 141 Potassium 3.9 Chloride 108 H Carbon Dioxide 26.0 Anion Gap 7 BUN 17 Creatinine 0.95 Estim Creat Clear Calc 80.04 Est GFR (MDRD) Af Amer 91 Est GFR (MDRD) Non-Af 75 BUN/Creatinine Ratio 17.9 Glucose 90 Calcium 8.7 Total Bilirubin 0.20 AST 28 ALT 45 Alkaline Phosphatase 94 Total Protein 7.5 Albumin 3.1 L Globulin 4.4 H Albumin/Globulin Ratio 0.7 L Lipase 132 Serum , Qual NEGATIVE Urine Color Urine Clarity Urine pH Ur Specific [place] Urine Protein Urine Glucose (UA) Urine Ketones Urine Occult Blood Urine Nitrite Urine Bilirubin Urine Urobilinogen Ur Leukocyte Esterase 11/29/20 05:55 WBC RBC Hgb Hct MCV MCH MCHC RDW Std Deviation RDW Coeff of Tata Plt Count MPV Immature Gran % (Auto) Neut % (Auto) Lymph % (Auto) [place] % (Auto) Eos % (Auto) Baso % (Auto) Absolute Neuts (auto) Absolute Lymphs (auto) Nucleated RBC % Sodium Potassium Chloride Carbon Dioxide Anion Gap BUN Creatinine Estim Creat Clear Calc Est GFR (MDRD) Af Amer Est GFR (MDRD) Non-Af BUN/Creatinine Ratio Glucose Calcium Total Bilirubin AST ALT Alkaline Phosphatase Total Protein Albumin Globulin Albumin/Globulin Ratio Lipase Serum , Qual Urine Color Yellow Urine Clarity Clear Urine pH 6.5 Ur Specific [place] 1.010 Urine Protein Negative Urine Glucose (UA) Normal Urine Ketones Negative Urine Occult Blood Negative Urine Nitrite Negative Urine Bilirubin Negative Urine Urobilinogen Normal Ur Leukocyte Esterase Negative Discharge Plan Triage Chief Complaint: Abd Pain ED Provider: Eduin Farias Dx/Rx/DC Orders Clinical Impression: Abdominal pain, Sinusitis Instructions: ED Abdominal Pain Unkn Cause Fem, ED Abdominal Pain Gallstone Poss, ED Sinusitis (Antibiotic Treatment) Prescriptions: New amoxicillin 500 MG tablet 500 mg PO TID Qty: 30 RF: 0 No Action fluticasone propionate [Flonase Allergy Relief] 50 mcg/actuation spray,suspension 2 spray INTRANASAL DAILY PRN (Reason: allergies) RF: 0 loratadine 10 MG tablet 10 mg PO DAILY RF: 0 guaifenesin 1,200 mg Tablet Extended Release 12hr 1,200 mg PO BID RF: 0 nifedipine [Adalat CC] 60 mg tablet extended release 60 mg PO DAILY RF: 0 norethindrone (contraceptive) 0.35 mg tablet 0.35 mg DAILY RF: 0 labetalol 100 mg tablet 50 mg PO BID Qty: 90 RF: 1 Primary Care Provider: Olga Car Referrals: Jose Moreno MD [STAFF PHYSICIAN] - 3-5 Days Olga Car MD [Primary Care Provider] - 3-5 Days Disposition Disposition: Home, Self Care
[2020-11-29 05:54] LABS: Absolute Lymphocyte Count 1.89 X10^3/uL (0.83-4.51); Absolute Neutrophil Count 7.4 X10^3/uL (2.0-7.7); Basophil# 0.03 X10^3/uL; Basophil% 0.3 % (0-1); Eosinophil# 0.15 X10^3/uL; Eosinophils% 1.5 % (0-5); Hematocrit 40.1 % (37-47); Hemoglobin 13.1 g/dL (12.0-15.0); Lymphocyte # 1.89 X10^3/ul (0.83-4.51); Lymphocyte % 18.9 % (19-41); Mean Corp Hgb Conc 32.7 g/dL (32-36); Mean Corpuscular Hgb 27.6 pg (27.0-32.0); Mean Corpuscular Volume 84.4 fL (81-99); Mean Platelet Vol. 9.5 fl (6.2-12.0); Monocyte# 0.55 X10^3/uL; Monocyte% 5.5 % (0-10); NRBC Flagged by Analyzer 0 % (0-5); Neutrophil # 7.38 X10^3/uL (2.7-7.7); Neutrophil % 73.6 % (47-70); Platelet Count 314 K/mm3 (150-450); RBC Distribution Width CV 13.2 % (11.6-14.6); RBC Distribution Width SD 40.5 fl (35.1-43.9); Red Blood Count 4.75 M/mm3 (4.2-5.4)
[2020-11-29] MEDS: 0.9% Normal Saline 1,000 ML 125 ML IV (06:07)
[2020-11-29 06:14] LABS: Mucous, Urine 0 SEEN /hpf (<or=2+); Red Blood Cells-Urine 0 SEEN /hpf (0-5); Squamous Epithelial Cells - UA 0 SEEN /hpf (5-10)
[2020-11-29 06:20] LABS: Color, Urine Yellow (Yellow); Glucose, Dipstick Normal (Normal); Ketone-Dipstick Negative (Negative); Leukocyte Esterase-Dipstick Negative /ul (Negative); Nitrite-Dipstick Negative (Negative); Occult Blood-Urine Negative /ul (Negative); Protein-Dipstick Negative (Negative); Urine Bilirubin Dipstick Negative (Negative); Urine Clarity Clear (Clear); Urine Urobilinogen Normal (Normal); Urine pH 6.5 (5.0 - 8.0)
[2020-11-29 06:23] LABS: ALB/GLOB Ratio 0.7 RATIO (0.9-2.4); AST(SGOT) 28 U/L (15-37); Alanine Aminotransfer ALT/SGPT 45 U/L (13-56); Albumin, Serum 3.1 g/dL (3.2-5.0); Alkaline Phosphatase 94 U/L (45-117); Anion Gap 7 (5-15); BUN 17 mg/dL (7-18); BUN/Creat Ratio 17.9 RATIO (10-20); Calcium,Total 8.7 mg/dL (8.5-10.1); Chloride 108 mmol/L (98-107); Creatinine, Serum 0.95 mg/dL (0.55-1.02); EST Glomerular Filtration Rate 75 mL/min (>60); Est Glom Filt Rate - Afr Amer 91 mL/min (>60); Estimated Creatinine Clearance 80.04 ml/min; Globulin 4.4 g/dL (2.2-4.2); Glucose 90 mg/dL (74-106); Lipase 132 U/L (73-393); Potassium 3.9 mmol/L (3.5-5.1); Protein, Total 7.5 g/dL (6.4-8.2); Sodium Level 141 mmol/L (136-145)
[2020-11-29 06:24] LABS: Internal QC Validated? YES +Cl - CLEAR BKGD; Pregnancy, Serum, hCG Quali. NEGATIVE Negative
[2020-11-29 06:51] LABS: Bacteria RARE /hpf (None Seen); White Blood Cells 0-5 SEEN /hpf (0-5)
[2020-11-29] MEDS: AMOXICILLIN 500 MG CAPSULE PO (06:53)
== END 2020-11-29 07:01 | disposition home or self-care (01) ==
PROVIDERS: Emergency Provider Emergency Medicine; PCP Internal Medicine
DX: R10.11 Right upper quadrant pain (principal); J32.9 Chronic sinusitis, unspecified
CPT/HCPCS: 80053; 81001; 83690; 84703; 85025; 96360; 99282; J7030; A4216

== ENCOUNTER → 2021-06-17 | Outpatient (CLI) | payer OTHER, SELFPAY ==
[2021-06-17 12:12] LABS: Anion Gap 7 (5-15); BUN 15 mg/dL (7-18); BUN/Creat Ratio 21.4 RATIO (10-20); Calcium,Total 8.8 mg/dL (8.5-10.1); Chloride 108 mmol/L (98-107); EST Glomerular Filtration Rate 106 mL/min (>60); Est Glom Filt Rate - Afr Amer 129 mL/min (>60); Glucose 92 mg/dL (74-106); Potassium 3.8 mmol/L (3.5-5.1); Sodium Level 138 mmol/L (136-145)
[2021-06-17 12:40] LABS: Internal QC Validated? YES +Cl - CLEAR BKGD; Pregnancy, Serum, hCG Quali. NEGATIVE Negative
== END | disposition home or self-care (01) ==
LOC: PSN 09:44
PROVIDERS: Internal Medicine Cardiovascular Disease; PCP Internal Medicine; Referring Provider Nurse Practitioner Gerontology; Visit Provider Nurse Practitioner Gerontology
DX: I38 Endocarditis, valve unspecified (principal); R00.0 Tachycardia, unspecified; E78.5 Hyperlipidemia, unspecified; Z20.822 Contact with and (suspected) exposure to COVID-19
CPT/HCPCS: 36415; 80048; 84703; 87426; C9803

== ENCOUNTER → 2021-06-18 | Outpatient (CLI) | payer OTHER, SELFPAY ==
--- NOTE | 2021-06-14 17:50 | PCM.HP.BLA ---
History and Physical Date of Admission: 06/18/21 [facility] [address] [place] [address] [phone] OFFICE VISITDate of Service: 05/13/21 MR#:[id number]: BRANDO PALMARep #:[id number]:1995 Provider: GIO Paz/Sex: 25/F [facility] [place]:Signed HPI HPI History of Present Illness Surgical H&P: Yes Details: This is a 25-year-old female that presents here today for a cardiovascular follow-up. She recently established with us for concerns over tachycardia and an abnormal echocardiogram. She does have a history of hypertension and a nonfunctioning kidney. Patient did undergo an echocardiogram which questions bicuspid aortic valve. She did also undergo a 30-day event monitor, which was normal. From a cardiac standpoint, the patient is doing well. She is accompanied by her mother. She denies any palpitations, chest pain, pressure or heaviness. She denies SOB, Orthopnea, and PND. She does not have bleeding issues; no blood in urine, stool or nosebleeds. She denies any decrease in energy level, myalgias, or claudication. She does not have edema, or sudden weight gain. She does have occasional lightheadedness with positional changes. She denies dizziness, syncopal or near syncopal episodes, and headaches. Intake Vital Signs 05/13/21 15:26 Height 5 ft 5 in Weight: 282 lb BMI 46.9 BP 128/80 H Blood Pressure Location Lt brachial Position Sitting Respiration 18 Pulse 71 Pulse Source Monitor Pulse Oximetry (%) 99 Intake Visit Reasons: 9 M FU [employer] Gift Wrapping Required: No Is patient in pain?: No Allergies ibuprofen Allergy (Verified 05/13/21 15:34) NEEDS FOLLOW-UP naproxen [From Aleve] Allergy (Verified 05/13/21 15:34) Hives Medications loratadine 10 mg PO DAILY 08/14/17 [History Confirmed 05/13/21] fluticasone propionate 50 mcg/actuation nasal spray,suspension 2 spray INTRANASAL DAILY PRN 04/12/20 [History Confirmed 05/13/21] labetalol 100 mg tablet 50 mg PO BID #90 tab 11/28/20 [Rx Confirmed 05/13/21] nifedipine [Adalat CC] 60 mg PO DAILY 11/29/20 [History Confirmed 05/13/21] norethindrone (contraceptive) 0.35 mg DAILY 11/29/20 [History Confirmed 05/13/21] PFSH Medical History (Reviewed 05/13/21 @ 15:34 by Nataliya Garcia [employer], [employer]) Acute frontal sinusitis, unspecified High blood pressure Non-functioning kidney Pre-eclampsia Seasonal allergies Tachycardia Valvular heart disease Surgical History History of appendectomy Family History Father Liver disease Hypertension Mother Hypertension Grandmother Anxiety Grandmother Anxiety Grandfather Anxiety Social History Smoking Status: Never smoker alcohol intake: never substance use type: does not use caffeine: No what type of physical activity do you participate in: none ROS Const Const: Negative for fatigue, weakness, fever(s), headache(s), chills, frequent falls, weight gain or weight loss Eyes Eyes: Negative for blind spots, loss of peripheral vision, transient loss of vision, blurry vision, change in vision, double vision, floaters or tunnel vision ENT ENT: Negative for headache(s), dizziness, Nosebleed/epistaxis, balance problems or neck pain Cardio Chest Pain: No Palpitations: No Edema: None Muscle aches with walking: None Resp Respiratory: Negative for SOB with activity, SOB at rest or SOB orthopnea\SOB lying down GI GI: Negative nausea, vomiting, heartburn, bloating, vomiting blood/hematemesis, bright, red blood in stools or black,tarry stools Musc Musc: Negative for muscle aches/ myalgia, muscle weakness, joint pain or balance problems Neuro Neuro: Positive for lightheadedness (occasional with positional changes. ); Negative for dizziness, near syncope, syncope, orthostatic symptoms, frequent falls, headache(s), weakness, blurry vision or double vision Nithin Hematologic/Lymphatic: Negative for easy bleeding or easy bruising Endo Endo: Negative for fatigue Cardiology Exam Const Appearance: cooperative and no acute distress Nutritional Appearance: obese Orientation: alert and oriented x3 Head Head: normal to inspection Ears: hearing grossly normal bilaterally Nose: external nose normal Face and Sinus: face symmetric Eyes General: appearance normal, both eyes and all related structures Eyelids: eyelids normal Conjunctivae: conjunctivae normal Pupils: PERRL and pupil size EOM: EOM intact bilaterally Neck Neck: normal visual inspection Carotids: Negative bruit Chest Chest inspection: normal inspection of the chest and normal respiratory effort Auscultation: Bilateral: Clear to Auscultation Cardio Palpation: normal PMI Rate: regular rate Rhythm: regular rhythm Heart sounds: S1 normal and S2 normal; Negative rub, gallop or murmur GI GI: normal to inspection, soft and obese; Negative no hepatosplenomegaly Neuro General: patient alert, patient oriented x3 and CN's II-XI intact bilaterally Skin Skin: no rashes or lesions noted Extremities Pulses: Normal: Right Posterior Tibial Pulse, Left Posterior Tibial Pulse, Right Radial Pulse and Left Radial Pulse Lower Extremity Edema: None: Bilateral Psych Psychological: normal affect Supplemental Info Supplemental Information Echocardiogram 03/14/2020: Left ventricular systolic function is normal. The estimated ejection fraction is 65 %. Mid cavitary false tendon noted. The left atrium is mildly enlarged. Trivial mitral valve insufficiency. Trivial tricuspid valve insufficiency. Based upon the 2D echocardiographic images obtained a bicuspid aortic valve cannot be excluded and based upon the 2D echocardiographic images obtained and the spectral doppler information obtained there appears to be no obvious aortic valve restriction/stenosis or insufficiency. No evidence for diastolic dysfunction. Labs: No Data to Display Diagnostics: Electrocardiogram Echocardiogram Pulmonary: No Data to Display Assessment and Plan Assessment and Plan (1) Tachycardia: Status: Acute Plan - Nataliya Garcia NP, [employer]: Patient has a history of tachycardia. She denies any recent symptoms or events. She will continue with her current medical therapy, and monitor for any concerning symptoms. (2) Valvular heart disease: Status: Chronic Orders: Orders: Basic Metabolic Profile (BMP) Today Echo Transesophageal (RED) 05/28/21 Plan - Nataliya Garcia NP, [employer]: Patient had an echocardiogram 02/2020, there were concerns as to whether or not she does have bicuspid aortic valve. There was no obvious aortic valve restriction/stenosis or insufficiency noted on her echocardiogram. We will obtain a RED to further evaluate this. She was given RED instructions. Plan Details Additional Comments: Patient will follow up in 12 months, or sooner if needed. Thank you for allowing me to participate in the care of your patient. Please don't hesitate to call if any issues arise. This note was generated using a voice recognition system and there may be incorrect words, spelling, or punctuation that were not noted when reviewing the office note prior to saving. Follow Up: 1 Year (PFM) COVID (Procedure Consent) Procedure Criteria Procedure Criteria: Yes Elective The surgeon/proceduralist and patient have discussed in detail the risk of exposure to and/or potential harm posed by the COVID-19 virus with having a surgery/procedure at this time versus the risk of delaying the surgery/procedure. It is not possible to know either the risk of delaying the surgery or procedure or chance of getting an infection with perfect accuracy, but a joint decision was made between the patient and the surgeon/proceduralist to proceed at this time with the scheduled surgery/procedure as indicated on the consent form. Coding Level of Care Code Off vis,est,level 4 Diagnoses Tachycardia R00.0 Valvular heart disease I38 Coding Level of Care Code Off vis,est,level 4 Diagnoses Tachycardia R00.0 Valvular heart disease I38 05/13/21 1700<Electronically signed by Nataliya Garcia [employer] RE[employer] [employer]>Date Nataliya Garcia NP [employer] 05/13/21 1706<Electronically signed by Mikey Jacobsen MD>Cosigner Signature:Date (if applicable)Mikey Jacobsen MD CC: Dr. Olga Car MD ~
--- NOTE | 2021-06-18 12:35 | ECHOL_ITS ---
Reason For Study: R/O Bicuspid AV Procedure This was a limited 2D transthoracic echocardiogram. Limited views were obtained. Exam performed in department. Left Ventricle The estimated ejection fraction is 65 %. Based upon the 2D echocardiographic images obtained there appears to be grossly normal left ventricular size, wall motion, and systolic function. No regional wall motion abnormalities noted. Right Ventricle Normal systolic function. Mitral Valve There is no mitral annular calcification. Normal mitral valve. Tricuspid Valve Normal tricuspid valve. Aortic Valve Trisinus/trileaflet aortic valve. Normal aortic valve. Pulmonic Valve The pulmonic valve is not well visualized. Pericardium/Pleural No pericardial effusion. MMode/2D Measurements & Calculations LVIDd: 4.8 cm IVSd: 0.93 cm LVOT diam: 2.0 cm LVIDs: 3.1 cm LVPWd: 1.0 cm LVOT area: 3.0 cm2 FS: 36.2 % Ao root diam: 2.8 cm LA dimension(2D): 3.8 cm Doppler Measurements & Calculations Ao V2 max: 172.1 cm/sec LV V1 max: 145.0 cm/sec SV(LVOT): 94.3 ml Ao max P.9 mmHg LV V1 max P.4 mmHg Ao V2 mean: 112.9 cm/sec LV V1 mean P.9 mmHg Ao mean P.9 mmHg LV V1 mean: 105.0 cm/sec Ao V2 VTI: 35.7 cm LV V1 VTI: 31.4 cm STANLEY(I,D): 2.6 cm2 STANLEY(V,D): 2.5 cm2 ECHO/Echo, Limited Study Interpretation Summary Limited views were obtained. Based upon the 2D echocardiographic images obtained there appears to be grossly normal left ventricular size, wall motion, and systolic function. The estimated ejection fraction is 65 %. Trisinus/trileaflet aortic valve. Ordering Physician: Mikey Jacobsen Referring Physician: Nataliya Garcia Performed By: Onelia Dhillon RDCS
== END | disposition home or self-care (01) ==
LOC: CVS 09:43
PROVIDERS: PCP Internal Medicine; Referring Provider Nurse Practitioner Gerontology; Visit Provider Nurse Practitioner Gerontology
DX: I38 Endocarditis, valve unspecified (principal)
CPT/HCPCS: 93308; A4216

== ENCOUNTER → 2021-06-20 | Outpatient (CLI) | payer OTHER, SELFPAY ==
[2021-06-20 12:07] LABS: Absolute Lymphocyte Count 1.87 X10^3/uL (0.83-4.51); Absolute Neutrophil Count 3.7 X10^3/uL (2.0-7.7); Basophil# 0.04 X10^3/uL; Basophil% 0.7 % (0-1); Eosinophil# 0.11 X10^3/uL; Eosinophils% 1.8 % (0-5); Hematocrit 41.2 % (37-47); Hemoglobin 13.5 g/dL (12.0-15.0); Lymphocyte # 1.87 X10^3/ul (0.83-4.51); Lymphocyte % 30.9 % (19-41); Mean Corp Hgb Conc 32.8 g/dL (32-36); Mean Corpuscular Hgb 28.6 pg (27.0-32.0); Mean Corpuscular Volume 87.3 fL (81-99); Mean Platelet Vol. 9.8 fl (6.2-12.0); Monocyte# 0.35 X10^3/uL; Monocyte% 5.8 % (0-10); NRBC Flagged by Analyzer 0 % (0-5); Neutrophil # 3.68 X10^3/uL (2.7-7.7); Neutrophil % 60.6 % (47-70); Platelet Count 335 K/mm3 (150-450); RBC Distribution Width CV 12.7 % (11.6-14.6); Red Blood Count 4.72 M/mm3 (4.2-5.4); White Blood Count 6.1 K/mm3 (4.4-11.0)
[2021-06-20 12:29] LABS: Cholesterol 227 mg/dL (200); High Density Lipoprotein 49 mg/dL; Thyroid Stim Hormone (TSH) 2.78 uIU/mL (0.358-3.74); Triglycerides 55 mg/dL; Very Low Density Lipoprotein 11 mg/dL (5-40)
== END | disposition home or self-care (01) ==
LOC: BIMLAB 10:15
PROVIDERS: PCP Internal Medicine; Referring Provider Nurse Practitioner Family; Visit Provider Nurse Practitioner Family
DX: Z00.00 Encounter for general adult medical examination without abnormal findings (principal)
CPT/HCPCS: 36415; 80061; 84443; 85025

== ENCOUNTER 2022-03-03 17:10 | Emergency (ER) | payer BC, SELFPAY ==
[2022-03-03 17:11] VITALS: BP 177/82; PULSE 101; RESP 18; TEMP 36.1; O2SAT 100; BMI 47.0
[2022-03-03] MEDS: Ondansetron ODT 4 MG Tablet PO (19:55)
[2022-03-03] MEDS: Acetaminophen 325 MG Tablet 650 MG PO (19:55)
[2022-03-03 19:57] VITALS: BP 126/78; BP 135/86; BP 135/97; PULSE 73; PULSE 95
--- NOTE | 2022-03-03 20:09 | EKG12_ITS ---
Test Reason : DYSRHYTHMIA Blood Pressure : / mmHG Vent. Rate : 070 BPM Atrial Rate : 070 BPM P-R Int : 138 ms QRS Dur : 080 ms QT Int : 420 ms P-R-T Axes : 059 042 016 degrees QTc Int : 453 ms Normal sinus rhythm with sinus arrhythmia Nonspecific T wave abnormality Confirmed by ARLEN VARMA, ANGEL ([id number]), international editorial producer MANAS WAGONER ([id number]) on 03/05/2022 10:42:19 AM Referred By: GUERDA Confirmed By:ANGEL MCKINLEY MD
--- NOTE | 2022-03-03 20:10 | EX.ED.DYSGE1 ---
HPI <NEETU Lopez - Last Filed: 03/03/22 21:43> History of Present Illness Chief Complaint: General Illness Narrative Narrative: Patient presents today with a right-sided headache, nausea, and general feelings of feeling unwell. She states she is currently being treated with Augmentin for a sinus infection and is on day 5 of her antibiotic. She has had pain in her left frontal sinus but now states she is having it in her right frontal sinus and still has ear pain. She has been taking Flonase and Zyrtec daily. She states she had an episode earlier where her head began to hurt and she got motion sickness in the car and started to feel claustrophobic. She also felt like her heart was fluttering in her chest. Patient took Tylenol and experienced some relief in her head pain. Her significant other states that motion sickness is very common for her as well as feelings of claustrophobia. She denies fever, chest pain, shortness of breath, vomiting, abdominal pain, and diarrhea. [facility] <NEETU Lopez - Last Filed: 03/03/22 21:43> [facility] Medical History Acute frontal sinusitis, unspecified Encounter for preventative adult health care examination High blood pressure Hypersomnia Non-functioning kidney Pre-eclampsia Seasonal allergies Tachycardia Valvular heart disease Home Medications fluticasone propionate 50 mcg/actuation nasal spray,suspension (Flonase Allergy Relief) 2 spray intranasal DAILY PRN allergies 04/12/20 [History Last Taken 08/29/20] norethindrone (contraceptive) 0.35 mg tablet 0.35 mg DAILY 11/29/20 [History Last Taken Unknown] loratadine 10 mg tablet 10 mg PO DAILY allergies #90 tabs 05/27/21 [Rx Last Taken Unknown] montelukast 10 mg tablet (Singulair) 10 mg PO QHS #90 tabs 06/20/21 [Rx Last Taken Unknown] labetalol 100 mg tablet 50 mg PO BID blood pressure #90 tabs 08/28/21 [Rx Last Taken Unknown] nifedipine 60 mg tablet,extended release (Adalat CC) 60 mg PO DAILY blood pressure #90 tabs 08/28/21 [Rx Last Taken Unknown] ondansetron 4 mg disintegrating tablet 4 mg PO Q8H PRN nausea and vomiting #10 tabs 03/03/22 [Rx Last Taken Unknown] Allergy/AdvReac Type Severity Reaction Status Date / Time ibuprofen Allergy NEEDS Verified 06/20/21 09:33 FOLLOW-UP naproxen [From Aleve] Allergy Hives Verified 06/20/21 09:33 Family History Father Liver disease Hypertension Mother Hypertension Grandmother Anxiety Grandmother Anxiety Grandfather Anxiety Surgical History History of appendectomy Social History Smoking Status: Never smoker alcohol intake: never substance use type: does not use caffeine: No what type of physical activity do you participate in: none ROS <NEETU Lopez - Last Filed: 03/03/22 21:43> ROS ED Constitutional Constitutional ED: Denies chills, fever(s) or sweats Eyes Eyes: Denies blurry vision, change in vision or diplopia ENT ENT ED: Reports ear pain bilateral and sinus pressure; Denies rhinorrhea or sore throat Cardiovascular Cardiovascular: Reports palpitations; Denies chest pain or racing heartbeat Respiratory/Chest Respiratory/Chest: Denies cough, dyspnea or dyspnea on exertion Gastrointestinal Gastrointestinal: Reports nausea; Denies abdominal pain, diarrhea or vomiting Genitourinary Genitourinary ED: Denies dysuria, hematuria or urinary frequency Musculoskeletal Musculoskeletal: Denies arthralgias or myalgias Integumentary Denies abscess, Abrasions or rash Neurologic Neurologic: Reports headache(s); Denies paresthesias or weakness Psychiatric Psychiatric: Denies anxiety, depression or suicidal ideation Allergic/Immunologic Allergic/Immunologic ED: Denies mouth swelling, tongue swelling or urticaria EXAM <NEETU Lopez - Last Filed: 03/03/22 21:43> Physical Exam Const Vital Signs: 03/03/22 17:11 03/03/22 19:57 03/03/22 21:21 Temperature 97 F L Temperature Source Temporal Pulse Rate 101 H 71 Pulse Rate [Sitting (for 1 minute prior to obtaining)] 73 Pulse Rate [Standing (for 1 minute prior to obtaining)] 95 Respiratory Rate 18 15 Blood Pressure 177/82 H 124/68 H Blood Pressure [Lying] 126/78 H Blood Pressure [Sitting (for 1 minute prior to obtaining)] 135/86 H Blood Pressure [Standing (for 1 minute prior to obtaining)] 135/97 H Blood Pressure Mean 113 Blood Pressure Mean [Lying] 94 Blood Pressure Mean [Sitting (for 1 minute prior to obtaining)] 102 Blood Pressure Mean [Standing (for 1 minute prior to obtaining)] 109 Pulse Ox 100 98 Positive well developed and obese General Appearance ED: well developed and NAD Nutritional Appearance: obese HEENT Reports TM's clear and moist mucous membranes HEENT Narrative: Patient does not have frontal sinus tenderness. Tympanic Membrane ED: Yes TM's clear bilateral Eyes PERRL and EOMs intact bilaterally Neck no lymphadenopathy and supple Chest Wall inspection of chest normal Resp normal respiratory effort and clear to auscultation bilaterally Cardio regular rate, regular rhythm and no murmurs GI non-tender, non-distended and no masses Palpation: soft Extremity normal to inspection Neuro oriented x3, CN's II-XII intact bilaterally and no sensory deficits noted Sensorium / Orientation: alert Motor Exam: strength 5/5 throughout Psych mental status grossly normal Skin no rashes or lesions noted, no wounds and skin turgor normal <Dr. Krzysztof Kenny DO - Last Filed: 03/03/22 22:00> Physical Exam Const Vital Signs: 03/03/22 17:11 03/03/22 19:57 03/03/22 21:21 Temperature 97 F L Temperature Source Temporal Pulse Rate 101 H 71 Pulse Rate [Sitting (for 1 minute prior to obtaining)] 73 Pulse Rate [Standing (for 1 minute prior to obtaining)] 95 Respiratory Rate 18 15 Blood Pressure 177/82 H 124/68 H Blood Pressure [Lying] 126/78 H Blood Pressure [Sitting (for 1 minute prior to obtaining)] 135/86 H Blood Pressure [Standing (for 1 minute prior to obtaining)] 135/97 H Blood Pressure Mean 113 Blood Pressure Mean [Lying] 94 Blood Pressure Mean [Sitting (for 1 minute prior to obtaining)] 102 Blood Pressure Mean [Standing (for 1 minute prior to obtaining)] 109 Pulse Ox 100 98 MDM <NEETU Lopez - Last Filed: 03/03/22 21:43> MDM MDM Narrative Medical decision making narrative: Patient is in no acute distress and is nontoxic-appearing. Vital signs are stable. Patient was given Zofran as well as Tylenol. Orthostatic vital signs have been obtained and are negative. EKG has been obtained due to patient stating she had feelings of her heart fluttering and does not show any PVCs or PACs. I have encouraged patient to follow-up with PCP on this if she continues to have symptoms as a Holter monitor may be required. On reexamination patient states her headache is improved after Tylenol and she is no longer nauseous. She states she feels like she can go home. I have encouraged her to finish her antibiotic for her sinusitis. She has been given a prescription for Zofran and discharged home in stable condition. Patient is comfortable with plan. Differential's I've considered: 1. Sinusitis 2. Palpitations 3. Headache 4. Nausea EKG Initial EKG: Attestation: I personally reviewed and interpreted this EKG as follows: Comments: Normal sinus rhythm with sinus arrhythmia. 70 bpm, no ST elevation. EKG also reviewed and interpreted by attending ED physician <Dr. Krzysztof Kenny, DO - Last Filed: 03/03/22 22:00> [facility] Narrative Medical decision making narrative: Patient is in no acute distress and is nontoxic-appearing. Vital signs are stable. Patient was given Zofran as well as Tylenol. Orthostatic vital signs have been obtained and are negative. EKG has been obtained due to patient stating she had feelings of her heart fluttering and does not show any PVCs or PACs. I have encouraged patient to follow-up with PCP on this if she continues to have symptoms as a Holter monitor may be required. On reexamination patient states her headache is improved after Tylenol and she is no longer nauseous. She states she feels like she can go home. I have encouraged her to finish her antibiotic for her sinusitis. She has been given a prescription for Zofran and discharged home in stable condition. Patient is comfortable with plan. Differential's I've considered: 1. Sinusitis 2. Palpitations 3. Headache 4. Nausea This patient was seen with a PA/[employer]PERATOR Individually assessed they patient including history and physical. I have reviewed everything on the chart that is available and agree with the documentation provided by the PA/[employer] OPERATOR including discussion about the assessment, treatment plan, discussion, and return precautions. Patient presenting with sensation of her heart fluttering. We did obtain an EKG and on my interpretation there is normal sinus rhythm with a ventricular rate of 70 bpm without sign of ischemic change. Lungs are clear to auscultation. Heart regular rate and rhythm without murmur. Respiratory rate normal at 15?18. Pulse ox 98 200% on room air. Patient also complaining today of a headache with recent diagnosis of sinusitis. He is on Augmentin and she is nursing home through her prescription. She developed nausea with her headache today. She was given Zofran and Tylenol in ED with good resolution of her pain and her nausea. Given this I do believe she needs any blood work. She is well-appearing and nontoxic. Discharged home with a prescription for Zofran. Impression: 1. Headache 2. History of sinusitis 3. Nausea/vomiting 4. Palpitation Lab Data Attestation: I reviewed the patient's lab results. Discharge Plan Triage Chief Complaint: General Illness ED Midlevel Provider: Chel Epps ED Provider: Krzysztof Kenny Dx/Rx/DC Orders Clinical Impression: Sinusitis, Nausea, Headache Instructions: ED Sinusitis (Antibiotic Treatment) Prescriptions: New ondansetron 4 mg tablet,disintegrating 4 mg PO Q8H PRN (Reason: nausea and vomiting) Qty: 10 0RF No Action fluticasone propionate [Flonase Allergy Relief] 50 mcg/actuation spray,suspension 2 spray INTRANASAL DAILY PRN (Reason: allergies) loratadine 10 mg tablet 10 mg PO DAILY Qty: 90 0RF montelukast [Singulair] 10 mg tablet 10 mg PO QHS Qty: 90 1RF norethindrone (contraceptive) 0.35 mg tablet 0.35 mg DAILY Label Comments: TAKE 1 TABLET BY MOUTH EVERY DAY labetalol 100 mg tablet 50 mg PO BID Qty: 90 2RF nifedipine [Adalat CC] 60 mg tablet extended release 60 mg PO DAILY Qty: 90 2RF Primary Care Provider: Olga Car Referrals: Olga Car MD [Primary Care Provider] - 3-5 Days Activity Restrictions/Additional Instructions: Please return if symptoms persist or worsen. Follow-up with PCP. Disposition Disposition: Home, Self Care Discharge Date/Time: 03/03/22 21:22
[2022-03-03 21:21] VITALS: BP 124/68; PULSE 71; RESP 15; O2SAT 98
== END 2022-03-03 21:22 | disposition home or self-care (01) ==
PROVIDERS: Emergency Provider Student in an Organized Health Care Education/Training Program; PCP Internal Medicine; Visit Provider Student in an Organized Health Care Education/Training Program
DX: R51.9 Headache, unspecified (principal); R11.2 Nausea with vomiting, unspecified; R00.2 Palpitations; I10 Essential (primary) hypertension; Z79.899 Other long term (current) drug therapy
CPT/HCPCS: 93005; 99283

== ENCOUNTER → 2022-06-27 | Outpatient (CLI) | payer BC, SELFPAY ==
[2022-06-27 12:41] LABS: Absolute Lymphocyte Count 1.78 X10^3/uL (0.83-4.51); Absolute Neutrophil Count 3.3 X10^3/uL (2.0-7.7); Basophil# 0.03 X10^3/uL; Basophil% 0.5 % (0-1); Eosinophil# 0.13 X10^3/uL; Eosinophils% 2.3 % (0-5); Hemoglobin 13.5 g/dL (12.0-15.0); Lymphocyte # 1.78 X10^3/ul (0.83-4.51); Lymphocyte % 31.7 % (19-41); Mean Corp Hgb Conc 32.9 g/dL (32-36); Mean Platelet Vol. 10.5 fl (6.2-12.0); Monocyte# 0.37 X10^3/uL; Monocyte% 6.6 % (0-10); NRBC Flagged by Analyzer 0 % (0-5); Neutrophil # 3.28 X10^3/uL (2.7-7.7); Neutrophil % 58.5 % (47-70); Platelet Count 276 K/mm3 (150-450); RBC Distribution Width CV 12.6 % (11.6-14.6); RBC Distribution Width SD 39.7 fl (35.1-43.9); Red Blood Count 4.66 M/mm3 (4.2-5.4); White Blood Count 5.6 K/mm3 (4.4-11.0)
[2022-06-27 13:30] LABS: ALB/GLOB Ratio 0.9 RATIO (0.9-2.4); AST(SGOT) 18 U/L (15-37); Alanine Aminotransfer ALT/SGPT 24 U/L (13-56); Albumin, Serum 3.5 g/dL (3.2-5.0); Alkaline Phosphatase 88 U/L (45-117); Anion Gap 8 (5-15); BUN 18 mg/dL (7-18); BUN/Creat Ratio 22.6 RATIO (10-20); Chloride 105 mmol/L (98-107); Cholesterol 189 mg/dL (200); EST Glomerular Filtration Rate 91 mL/min (>60); Est Glom Filt Rate - Afr Amer 110 mL/min (>60); Globulin 3.9 g/dL (2.2-4.2); Glucose 90 mg/dL (74-106); High Density Lipoprotein 48 mg/dL; Potassium 3.7 mmol/L (3.5-5.1); Protein, Total 7.4 g/dL (6.4-8.2); Sodium Level 140 mmol/L (136-145); Thyroid Stim Hormone (TSH) 1.53 uIU/mL (0.358-3.74); Triglycerides 51 mg/dL; Very Low Density Lipoprotein 10 mg/dL (5-40)
== END | disposition home or self-care (01) ==
LOC: BIMLAB 08:04
PROVIDERS: PCP Internal Medicine; Referring Provider Nurse Practitioner Family; Visit Provider Nurse Practitioner Family
DX: Z00.00 Encounter for general adult medical examination without abnormal findings (principal); I10 Essential (primary) hypertension
CPT/HCPCS: 36415; 80053; 80061; 84443; 85025

== ENCOUNTER → 2022-12-01 | Outpatient (CLI) | payer BC, SELFPAY ==
[2022-12-01 12:18] LABS: Absolute Lymphocyte Count 1.52 X10^3/uL (0.83-4.51); Absolute Neutrophil Count 4.8 X10^3/uL (2.0-7.7); Basophil# 0.03 X10^3/uL; Basophil% 0.4 % (0-1); Eosinophil# 0.16 X10^3/uL; Eosinophils% 2.3 % (0-5); Hemoglobin 13.1 g/dL (12.0-15.0); Lymphocyte # 1.52 X10^3/ul (0.83-4.51); Lymphocyte % 21.7 % (19-41); Mean Corp Hgb Conc 32.8 g/dL (32-36); Mean Corpuscular Hgb 28.9 pg (27.0-32.0); Mean Corpuscular Volume 88.3 fL (81-99); Mean Platelet Vol. 9.9 fl (6.2-12.0); Monocyte# 0.53 X10^3/uL; Monocyte% 7.5 % (0-10); NRBC Flagged by Analyzer 0 % (0-5); Neutrophil # 4.76 X10^3/uL (2.7-7.7); Neutrophil % 67.8 % (47-70); Platelet Count 304 K/mm3 (150-450); RBC Distribution Width CV 12.1 % (11.6-14.6); RBC Distribution Width SD 38.8 fl (35.1-43.9); Red Blood Count 4.53 M/mm3 (4.2-5.4)
[2022-12-01 13:04] LABS: ALB/GLOB Ratio 0.9 RATIO (0.9-2.4); AST(SGOT) 18 U/L (15-37); Alanine Aminotransfer ALT/SGPT 30 U/L (13-56); Albumin, Serum 3.5 g/dL (3.2-5.0); Alkaline Phosphatase 97 U/L (45-117); Anion Gap 6 (5-15); BUN 11 mg/dL (7-18); BUN/Creat Ratio 14.2 RATIO (10-20); Calcium,Total 9.6 mg/dL (8.5-10.1); Chloride 104 mmol/L (98-107); Creatinine, Serum 0.78 mg/dL (0.55-1.02); EST Glomerular Filtration Rate 93 mL/min (>60); Est Glom Filt Rate - Afr Amer 113 mL/min (>60); Globulin 3.9 g/dL (2.2-4.2); Glucose 96 mg/dL (74-106); Protein, Total 7.4 g/dL (6.4-8.2); Sodium Level 136 mmol/L (136-145)
== END | disposition home or self-care (01) ==
LOC: BIMLAB 09:43
PROVIDERS: PCP Internal Medicine; Referring Provider Internal Medicine; Visit Provider Internal Medicine
DX: I10 Essential (primary) hypertension (principal)
CPT/HCPCS: 36415; 80053; 85025

== ENCOUNTER → 2023-12-24 | Outpatient (CLI) | payer BC, SELFPAY ==
[2023-12-24 16:50] LABS: Absolute Lymphocyte Count 2.31 X10^3/uL (0.83-4.51); Absolute Neutrophil Count 3.5 X10^3/uL (2.0-7.7); Basophil# 0.03 X10^3/uL; Basophil% 0.5 % (0-1); Eosinophil# 0.13 X10^3/uL; Hematocrit 37.8 % (37-47); Hemoglobin 12.4 g/dL (12.0-15.0); Lymphocyte # 2.31 X10^3/ul (0.83-4.51); Lymphocyte % 36.3 % (19-41); Mean Corp Hgb Conc 32.8 g/dL (32-36); Mean Corpuscular Hgb 27.6 pg (27.0-32.0); Mean Platelet Vol. 9.1 fl (6.2-12.0); Monocyte# 0.33 X10^3/uL; Monocyte% 5.2 % (0-10); NRBC Flagged by Analyzer 0 % (0-5); Neutrophil # 3.54 X10^3/uL (2.7-7.7); Neutrophil % 55.7 % (47-70); Platelet Count 342 K/mm3 (150-450); RBC Distribution Width CV 11.9 % (11.6-14.6); RBC Distribution Width SD 36.1 fl (35.1-43.9); White Blood Count 6.4 K/mm3 (4.4-11.0)
[2023-12-24 17:07] LABS: ALB/GLOB Ratio 0.9 RATIO (0.9-2.4); AST(SGOT) 32 U/L (15-37); Alanine Aminotransfer ALT/SGPT 64 U/L (13-56); Albumin, Serum 3.4 g/dL (3.2-5.0); Alkaline Phosphatase 86 U/L (45-117); Anion Gap 10 (5-15); BUN 12 mg/dL (7-18); BUN/Creat Ratio 19.1 RATIO (10-20); Calcium,Total 8.9 mg/dL (8.5-10.1); Chloride 105 mmol/L (98-107); Cholesterol 183 mg/dL (200); Creatinine, Serum 0.63 mg/dL (0.55-1.02); EST Glomerular Filtration Rate 118 mL/min (>60); Est Glom Filt Rate - Afr Amer 143 mL/min (>60); Globulin 3.9 g/dL (2.2-4.2); Glucose 85 mg/dL (74-106); High Density Lipoprotein 41 mg/dL; Potassium 3.2 mmol/L (3.5-5.1); Protein, Total 7.3 g/dL (6.4-8.2); Sodium Level 139 mmol/L (136-145); Triglycerides 76 mg/dL; Very Low Density Lipoprotein 15 mg/dL (5-40)
[2023-12-24 17:22] LABS: Hemoglobin A1c 5.1 % (3.8-5.6)
== END | disposition home or self-care (01) ==
LOC: VSLAB 14:43
PROVIDERS: PCP Nurse Practitioner Family; Visit Provider Nurse Practitioner Family
DX: I10 Essential (primary) hypertension (principal)
CPT/HCPCS: 36415; 80053; 80061; 83036; 84443; 85025

== ENCOUNTER → 2024-02-12 | Outpatient (CLI) | payer BC, SELFPAY ==
[2024-02-12 09:56] LABS: Potassium 3.4 mmol/L (3.5-5.1)
== END | disposition home or self-care (01) ==
LOC: LAB 08:48
PROVIDERS: PCP Nurse Practitioner Family
DX: E87.6 Hypokalemia (principal)
CPT/HCPCS: 36415; 84132